=== PATIENT | male | born 1955 | race Caucasian/White ===

== ENCOUNTER → 2024-09-03 07:40 | Outpatient (REF) | payer BC, SELFPAY | LOC: HWRAD 07:40 | PROVIDERS: ATTENDING PHYSICIAN Family Medicine | DX: Z87.891 Personal history of nicotine dependence (principal) | CPT/HCPCS: 71271 ==

== ENCOUNTER → 2024-11-19 08:53 | Outpatient (REF) | payer BC, SELFPAY | LOC: RCS 08:53 | PROVIDERS: ATTENDING PHYSICIAN Family Medicine | DX: I10 Essential (primary) hypertension (principal); R06.02 Shortness of breath | CPT/HCPCS: 93017; 93350; Q9950 ==

== ENCOUNTER 2025-06-22 20:51 | Inpatient (IN) | payer BC, SELFPAY ==
[2025-06-22] VITALS (9 sets, daily range): BP systolic 117–169; BP diastolic 51–95; BMI 24.7; BMI 24.6
[2025-06-22 13:32] LABS: Hematocrit 43.1 % (39.0-52.0); Hemoglobin 15.4 g/dL (13.0-18.0); Mean Corp Hgb Conc. 35.7 g/dL (33.0-37.0); Mean Corpuscular Volume 88.3 fL (80.0-94.0); Nucleated Red Blood Cells % 0 % (-); Platelet Count 144 10^3/uL (130-400); Red Cell Dist. Width 12.5 % (11.5-14.5)
[2025-06-22 13:46] LABS: ALT (SGPT) 19 U/L (0-50); AST (SGOT) 19 U/L (17-59); Albumin 4.5 g/dl (3.5-5.0); Alkaline Phosphatase 79 U/L (38-126); Blood Urea Nitrogen 22 mg/dl (9-20); Calcium 9.4 mg/dl (8.4-10.2); Carbon Dioxide 25 mmol/L (22-30); Chloride 101 mmol/L (98-107); Glucose 186 mg/dl (70-99); Potassium 4.5 mmol/L (3.5-5.1); Sodium 133 mmol/L (135-145); Total Protein 7.6 g/dl (6.3-8.2); eGFR 43.64
[2025-06-22 14:30] LABS: Urine Character Cloudy (Clear)
[2025-06-22 14:36] LABS: Urine White Cell 50-60 /HPF (0-5)
[2025-06-22 14:37] LABS: Urine Red Blood Cell 0-2 /HPF (0-2)
--- NOTE | 2025-06-22 15:51 | ED.GENMED ---
History of Present Illness
General
Chief Complaint: Urinary Symptoms
Time Seen by Provider: 06/22/25 15:09
History of Present Illness
History of Present Illness:
69-year-old male with history of hypertension and prediabetes presenting with known urinary tract infection. Patient reports history of prostate issues and for the past several months has been having urinary frequency. However yesterday, noted
pain with urination. Today was having fever and rigors as well as right sided back pain. He went to his PCP who prescribed him antibiotic. He took the first dose. However upon return home, rigors got worse. Denies history of UTI in the past.
Notes some mild lower abdominal discomfort. Denies chest pain or difficulty breathing. Denies surgical history. Denies additional acute medical complaints
Phy Exam
Physical Exam
Physical Exam:
General: Well-appearing, no clinical signs of dehydration, nontoxic and in no acute distress
HEENT: protecting airway
Neck: appears supple
CV: Normal heart rate, regular rhythm
Resp: No accessory muscle use, no increased work of breathing, lungs clear to auscultation bilaterally
Abd: Mild suprapubic tenderness, no rebound or guarding. No CVA tenderness
Extremities: No deformities, no swelling
Neuro: alert, no focal neurologic deficit
: deferred
Rectal: deferred
Psych: Normal affect
Skin: Intact
Sepsis
Sepsis Screening
Sepsis Assessment: Sepsis
Sepsis Screening: Lactate >2mmol/L
Sepsis Screen
Sepsis Screen: Sepsis
Date: 06/22/25
Time: 19:54
Course
Orders/Labs/Results
Orders:
Orders
06/22/25 13:17
Complete Blood Count/With Diff Urgent
Comprehensive Metabolic Panel Urgent
Lactic Acid Q4H
Comment: ON ICE, CANCEL 2ND ORDER IF FIRST LACTIC ACID LEVEL <2
Blood Culture Q20M
MITZI Source: Blood/Venous
Specimen Description:
Comment: Urgent from separate sites. If patient screens positive for possible sepsis
06/22/25 14:22
Urinalysis Reflex To Culture Urgent
Date Specimen was Collected: 06/22/25
Time Specimen was Collected: 13:10
Urine Microscopic Reflex Cult Urgent
Urine Culture Urgent
MITZI Source: U
Specimen Description:
Date Specimen was Collected: 06/22/25
Time Specimen was Collected: 13:10
06/22/25 15:31
0.9% Sodium Chloride 1000 ml [Nss] 1,000 ml IV BOLUS
Acetaminophen [Tylenol] 1,000 mg PO NOW STA
06/22/25 15:50
CT Abd/pel Without Iv Or Oral Urgent
Comment:
Reason For Exam: UTI, right flank pain, REX
06/22/25 18:18
0.9% Sodium Chloride 1000 ml [Nss] 1,000 ml IV BOLUS
06/22/25 18:36
Lactic Acid Q4H
Comment: ON ICE, CANCEL 2ND ORDER IF FIRST LACTIC ACID LEVEL <2
Blood Culture Q20M
MITZI Source: Blood/Venous
Specimen Description:
Comment: Urgent from separate sites. If patient screens positive for possible sepsis
06/22/25 19:22
Ketorolac [Toradol] 15 mg IV NOW STA
06/22/25 19:48
Cefepime HCl [Maxipime] 2,000 mg IV NOW STA
Abnormal Lab Results
06/22/25 06/22/25
13:17 14:22
MCH 31.6 H pg
(27.0-31.0)
Absolute Neuts (auto) 8.6 H 10^3/uL
(1.4-6.5)
Absolute Lymphs (auto) 0.6 L 10^3/uL
(1.2-3.4)
Neutrophils % 90.0 H %
(42.2-75.2)
Lymphocytes % 6.4 L %
(20.5-51.1)
Sodium 133 L mmol/L
(135-145)
BUN 22 H mg/dl
(9-20)
Creatinine 1.7 H mg/dL
(0.7-1.3)
Glucose 186 H mg/dl
(70-99)
Lactic Acid 3.2 H mmol/L
(0.7-2.0)
Total Bilirubin 2.8 H mg/dl
(0.2-1.3)
Urine Ketones 1+ A
(Negative)
Ur Occult Blood Reflex 4+ A
(Negative)
Urine Nitrite (Reflex) Positive A
(Negative)
Leukocyte Esterase Rfl 3+ A
(Negative)
Urine WBC (Reflex) 50-60 A /HPF
(0-5)
Urine Bacteria (Reflex) Many A
(Negative)
Urine Albumin (Reflex) 3+ A
(Neg - Trace)
06/22/25 13:17
06/22/25 13:17
Vital Signs
Initial and Last Documented VS:
Initial Vital Signs
Temp Pulse Resp BP Pulse Ox
100.1 F 106 18 169/95 98
06/22/25 13:05 06/22/25 13:05 06/22/25 13:05 06/22/25 13:05 06/22/25 13:05
Last Documented Vital Signs
Temp Pulse Resp BP Pulse Ox
100.6 F H 94 31 117/73 96
06/22/25 19:32 06/22/25 19:45 06/22/25 19:45 06/22/25 19:00 06/22/25 19:45
MDM/Problems Addressed
MDM/Problems Addressed:
69-year-old male with history of hypertension and prediabetes presenting for concern of urinary tract infection with fever, rigors, right-sided back pain. Vital signs on arrival significant for fever and tachycardia.
On exam patient is resting comfortably, no acute distress. Patient had laboratory analysis and urinalysis completed prior to my assessment. Patient's workup is significant for urinary tract infection with REX. Patient is meeting SIRS criteria,
and now sepsis with known source of infection. Lactic acid is also elevated at 3.2. Blood pressure remained stable without concern for septic shock or severe sepsis. Started patient on IV fluids and cefepime. Clinically suspect a pyelonephritis
given right sided back pain. Will obtain CT abdomen and pelvis. Patient does have some dry mucous membranes, and in the setting of sepsis, will start patient on IV fluids
18:50 -CT shows a nonobstructing right renal stone and some perinephric stranding, suggesting possible recently passed stone. Clinically suspect pyelonephritis, however infected stone that has since passed is also consideration. Will continue
management with antibiotics, fluids. Fever has appropriately defervesced. Plan for admission for sepsis from urinary source
19:40 -of note, delay in antibiotics due to mistakenly not ordering them. Will administer now
*Pulse Oximetry
SaO2: 98
Oxygen Mode of Delivery: Room air
Patient hypoxic: no
*Critical Care Note
Total Time (30-74mins, 75-104mins- exclusive of procedures): Not Applicable
ED Attending Note
-
Portions of this chart may have been created with voice recognition software.� Occasional wrong word or��sound alike� substitutions may have occurred due to the inherent limitations of voice recognition software.
Discharge Plan
Departure
Patient Disposition: Admit
Date of Disposition: 06/22/25
Time of Disposition: 19:25
Presentation/result/management discussed w/ accepting MD/DO: Hospitalist
Patient with high blood pressure during this ER visit?: No
Condition: Fair
Discharge Problem:
Sepsis, Pyelonephritis, REX (acute kidney injury)
Prescriptions:
No Action
losartan 100 mg Tablet
100 mg PO DAILY
metformin 500 mg Tablet
1,000 mg PO QPM
sulfamethoxazole-trimethoprim [Bactrim DS] 800-160 mg Tablet
1 tab PO BID
Rx Instructions:
for 7 days starting 06/22/25
ibuprofen [Advil] 200 mg Tablet
400 mg PO Q6HPRN PRN (Reason: mild pain)
tadalafil 5 mg Tablet
5 mg PO QPM
cholecalciferol (vitamin D3) [Vitamin D3] 25 mcg (1,000 unit) Tablet
25 mcg PO DAILY
Referrals:
Belkis Logan MD [Family Provider, Family Practice]
Interventions
Interventions:
*Risk Screen - Suicide Last Done: 06/22/25 13:05
*General Assessment Last Done: 06/22/25 13:05
*Neglect/Abuse Screening Last Done: 06/22/25 13:05
*ED- Fall Risk Assessment Last Done: 06/22/25 18:00
*ED COVID-19 Vaccine History Last Done: 06/22/25 19:33
*ED Influenza Vaccine History Last Done: 06/22/25 19:33
ED-Male Genitourinary Assessment Last Done: 06/22/25 19:34
Discharge Date and Time
Print Language: AUSTRALIAN
[2025-06-22] MEDS: TYLENOL 1000 MG PO (15:53)
[2025-06-22] MEDS: NSS 1000 IV ×3 (15:54→20:40)
[2025-06-22] MEDS: TORADOL 15 MG IV (19:27)
[2025-06-22] MEDS: MAXIPIME 2000 MG IV (19:53)
--- NOTE | 2025-06-22 20:23 | HPS.HSE ---
Family Physician
-
Family Physician: Belkis Logan MD
Chief Complaint
-
Fevers / Chills
History of Present Illness
Patient is a 69y M with PMH significant for hypertension, DM-II and BPH who presents to ED complaining of fevers and chills x 2 days. Patient states that he woke feeling fairly well yesterday AM. Around mid-morning he began to feel shaking
chills and general malaise. He went home from work and slept all day. He had diaphoresis during sleep and woke 'drenched' in sweat. Patient noted pain in the L lower abdomen - as well as in the R lower back. Overnight he had increased urinary
frequency and reports multiple episodes of painful, small volume urination. This AM he continued with fevers / chills, abdominal discomfort and urinary symptoms. He was seen by his PCP and UA was abnormal in the office. Patient was prescribed
Bactrim DS - and has taken one dose thus far. At home he has persistent shaking chills / rigors and presented to the ED for further evaluation.
Patient had N/V x 1 episode here in the ED. At the time of my examination patient is ill-appearing with tactile fever and mild diaphoresis.
Medical History
Past Medical History
Past Medical History: Reports Other
Additional Past Medical History:
Hypertension
DM-II
BPH
Past Surgical History: Reports Other
Additional Past Surgical History:
Left TRINH
Social History
Tobacco: Former Smoker (Quit smoking 17y ago.)
Alcohol: Occasional (6 drinks / week - mostly on the weekends.)
Personal:
Living: With Family
Family History
Family History: Not pertinent
Allergies / Home Medications
Allergies reflects when Allergies were last updated in [facility].
Home Medications with original date entered in [facility]
Allergy/Medication List:
Allergies
Allergy/AdvReac Type Severity Reaction Status Date / Time
No Known Allergies Allergy Verified 06/22/25 13:05
Home Medications
cholecalciferol (vitamin D3) 25 mcg (1,000 unit) tablet (Vitamin D3) 25 mcg PO DAILY Supplement 06/22/25
ibuprofen 200 mg tablet (Advil) 400 mg PO Q6HPRN PRN mild pain 06/22/25
losartan 100 mg tablet 100 mg PO DAILY Blood Clot Prevention/Tx 06/22/25
metformin 500 mg tablet 1,000 mg PO QPM Diabetes 06/22/25
sulfamethoxazole 800 mg-trimethoprim 160 mg tablet (Bactrim DS) 1 tab PO BID Infection 06/22/25
tadalafil 5 mg tablet 5 mg PO QPM Urinary Issue 06/22/25
Review of Systems
-
History Source: Patient
A 12 point ROS was completed and negative except as noted: Yes
Constitutional: Reports Fever, Fatigue and Chills
EENT: Denies Sore Throat
Respiratory: Denies Cough or Trouble Breathing
Cardiac: Reports Diaphoresis; Denies Chest Pain or Palpitations
Abdomen/GI: Reports Abdominal Pain, Nausea, Vomiting and Anorexia; Denies Diarrhea, Constipated, Bloody Stools or Black Stools
: Reports Dysuria, Frequency, Flank Pain, Difficulty Voiding and Urgency; Denies Bleeding or Discharge
Musculoskeletal: Denies Joint Pain or Edema
Neurological: Reports Headache; Denies Dizzy
Psych: Denies Depression or Anxiety
Physical Exam
Vital Signs
Vital Signs
Temp Pulse Resp BP Pulse Ox
100.6 F H 94 31 117/73 96
06/22/25 19:32 06/22/25 19:45 06/22/25 19:45 06/22/25 19:00 06/22/25 19:45
Physical Exam
General: Other (Ill-appearing, flushed 69y M.)
HEENT: Other (Dry MM. Neck supple.)
Respiratory: Clear; No Wheezes, Rales or Rhonchi
Cardiac: S1/S2 and Regular Rhythm; No Murmur
GI: Soft, Non Distended, Normal Bowel Sounds and Other (Mild LLQ tenderness. No rebound / guarding.)
Genito-urinary: No costovertebral tender
Musculoskeletal: No Clubbing, No Cyanosis and No Edema
Skin: Other (Tactile fever.)
Neuro: AO x 3
Psych: No Anxious or Depressed
Laboratory Results
-
06/22/25 13:17
06/22/25 13:17
Laboratory Results
Lactic Acid 1.1 mmol/L (0.7-2.0) 06/22/25 18:36
Total Bilirubin 2.8 mg/dl (0.2-1.3) H 06/22/25 13:17
AST 19 U/L (17-59) 06/22/25 13:17
ALT 19 U/L (0-50) 06/22/25 13:17
Alkaline Phosphatase 79 U/L (38-126) 06/22/25 13:17
Impression/Plan
-
A/P: Patient is a 69y M with PMH significant for HTN, DM-II and BPH who presents to ED complaining of fevers / chills since yesterday AM.
UTI / Pyelonephritis +/- Prostatitis
Sepsis secondary to the above
- Admit for further evaluation and treatment.
- Patient presents with urinary symptoms, UA suggestive of infection and evidence of organ dysfunction in the form of REX and hyperbilirubinemia.
- IV levofloxacin for now pending culture data.
- Aggressive IVF resuscitation.
- Supportive care with antipyretics, antiemetics, etc.
- CT scan reviewed. L renal stone but no evidence of ureteral stone, obstruction, etc.
- Perinephric stranding likely result of infection / pyelo.
- Note L pelvic mass / lesion - ? reactive lymph node versus inflamed / infected seminal vesicle.
- Urology evaluation for additional recommendations.
- Will likely repeat imaging after interval to see if there is improvement with treatment of infection.
REX
- SCr = 1.7. No prior values for comparison, but very likely REX secondary to sepsis.
- IVFs resuscitation as noted above.
- Hold losartan acutely.
- Follow for changes in renal function.
Benign Hypertension
- Stable. Holding BP medication as noted above.
DM-II
- Stable. Hold metformin acutely.
- Follow glucose and cover with SSI as needed.
- Update A1C.
BPH
- Tamsulosin daily. Bladder scan protocol and straight cath if needed.
- Check PSA as noted above for evidence of acute elevation / prostatitis.
DVT Prophylaxis: SCDs
Code Status: Full
--- NOTE | 2025-06-22 21:29 | CONS.URO ---
Consultation
-
Date/Time Consultation Performed: 06/22
Performing Provider: Lydia
Reason for Consultation: Prostatitis
Medical History
History of Present Illness
69M hx hypertension, DM-II and BPH
Known to Dr. Vazquez for elevated PSA and BPH management
Increasing PSA recently and has an MRI scheduled for July
Presented to ED complaining of fevers and chills x 2 days.
He began to feel shaking chills and general malaise, went home from work and slept all day.
He had diaphoresis during sleep and woke 'drenched' in sweat. Patient noted pain in the L lower abdomen as well as in the R lower back
Increased urinary frequency and reports multiple episodes of painful, small volume urination.
This AM he continued with fevers / chills, abdominal discomfort and urinary symptoms. He was seen by his PCP and UA was abnormal in the office. Patient was prescribed Bactrim DS - and has taken one dose thus far.
At home he had persistent shaking chills / rigors and presented to the ED for further evaluation
Patient had N/V x 1 episode in the ED
CT showed prostate lesion near L seminal vesicle
Some perinephric stranding without obstruction
Past Medical History
Past Surgical History: Other (Left TRINH)
Family History
Family History: Reviewed & Not Pertinent
Allergies/Home Medications
Allergies
Allergy/AdvReac Type Severity Reaction Status Date / Time
No Known Allergies Allergy Verified 06/22/25 13:05
Home Medications
�Medication �Instructions �Recorded �Confirmed �Type
cholecalciferol (vitamin D3) 25 25 mcg PO DAILY Supplement 06/22/25 06/22/25 History
mcg (1,000 unit) tablet (Vitamin
D3)
ibuprofen 200 mg tablet (Advil) 400 mg PO Q6HPRN PRN mild pain 06/22/25 06/22/25 History
losartan 100 mg tablet 100 mg PO DAILY Blood Clot 06/22/25 06/22/25 History
Prevention/Tx
metformin 500 mg tablet 1,000 mg PO QPM Diabetes 06/22/25 06/22/25 History
sulfamethoxazole 800 1 tab PO BID Infection 06/22/25 06/22/25 History
mg-trimethoprim 160 mg tablet
(Bactrim DS)
tadalafil 5 mg tablet 5 mg PO QPM Urinary Issue 06/22/25 06/22/25 History
Physical Exam
Vital Signs
Vital Signs
Temp Pulse Resp BP Pulse Ox
100.6 F H 95 26 128/58 98
06/22/25 19:32 06/22/25 21:15 06/22/25 21:15 06/22/25 21:00 06/22/25 20:00
Lab / Testing Results
Laboratory Results
06/22/25 13:17
06/22/25 13:17
Physical Exam
General: Well Developed, Well Nourished and No Apparent Distress
Respiratory: Clear and Non Labored Respirations
GI: Soft and Non Tender
Genito-urinary: No Costovertebral Tend
Neuro: AO x 3
Psych: Calm and Intact Judgement
Assessment / Plan
-
69M with sepsis from acute prostatitis and possible ascending UTI/pyelonephritis
- IV abx pending culture
- Jenkins catheter given voiding difficulty
- Tamsulosin
- Trial of void prior to discharge
- Soft tissue mass at L seminal vesicle on CT may be inflammatory/infectious vs less likely malignant. Does not appear to be a drainable collection/abscess
- An MRI of the prostate was already pending in mid July for elevated PSA and this may be a reasonable interval for follow up imaging of this area, unless persistent infection warrants repeat eval for abscess
- Recommend against checking PSA in setting of acute prostatitis
[2025-06-22] MEDS: TYLENOL 650 MG PO (21:51)
[2025-06-22] MEDS: FLUSH (NSS) 1 FLUSH IV (21:52)
--- NOTE | 2025-06-22 22:30 | PTCARENOTE ---
Pt arrived to unit cooperative, ambulated from stretcher to bed, steady gait, with pham catheter, otf urine. Pt was AAOx3, oriented to unit, call winter in reach, bed locked, bed in lowest position.
[2025-06-22] MEDS: LR 1000 IV (23:16)
[2025-06-22] MEDS: LEVAQUIN 100 IV (23:16)
[2025-06-22 23:34] LABS: Glucose - Point of Care 149 mg/dl (70-99)
[2025-06-23] VITALS (7 sets, daily range): BP systolic 99–149; BP diastolic 58–78
[2025-06-23] MEDS: COMPAZINE 5 MG IV ×2 (03:27→19:47)
[2025-06-23] MEDS: TYLENOL 650 MG PO ×3 (04:08→13:53)
--- NOTE | 2025-06-23 07:58 | W.PN.HOSP.TC ---
Today's Communication/Plan
-
Continue antibiotics
Follow cultures
Assessment / Plan
Assessment / Plan
Physical Exam
General: Other (Ill-appearing, flushed 69y M.)
HEENT: Other (Dry MM. Neck supple.)
Respiratory: Clear; No Wheezes, Rales or Rhonchi
Cardiac: S1/S2 and Regular Rhythm; No Murmur
GI: Soft, Non Distended, Normal Bowel Sounds
Genito-urinary: No costovertebral tender
Musculoskeletal: No Cyanosis and No Edema
Skin: Warm. Dry.
Neuro: AO x 3
Psych: Calm
Assessment/Plan
69y M with PMH significant for hypertension, DM-II and BPH who presents to ED complaining of fevers and chills x 2 days. Patient states that he woke feeling fairly well yesterday AM. Around mid-morning he began to feel shaking chills and
general malaise. He went home from work and slept all day. He had diaphoresis during sleep and woke 'drenched' in sweat. Patient noted pain in the L lower abdomen - as well as in the R lower back. Overnight he had increased urinary frequency and
reports multiple episodes of painful, small volume urination. This AM he continued with fevers / chills, abdominal discomfort and urinary symptoms. He was seen by his PCP and UA was abnormal in the office. Patient was prescribed Bactrim DS - and
has taken one dose thus far. At home he has persistent shaking chills / rigors and presented to the ED for further evaluation.
Patient had N/V x 1 episode in the ED.
UTI / Pyelonephritis +/- Prostatitis
Sepsis secondary to the above associated with lactic acidosis and acute kidney injury
Gram Negative Bacteremia
Lactic Acidosis - RESOLVED
- Patient presents with urinary symptoms, UA suggestive of infection and evidence of organ dysfunction in the form of REX and hyperbilirubinemia.
- Cefepime, Levofloxacin given initially.
- Now on Cefepime only.
- IVF resuscitation.
- Supportive care with antipyretics, antiemetics, etc.
- CT scan reviewed. L renal stone but no evidence of ureteral stone, obstruction, etc.
- Perinephric stranding likely result of infection / pyelo.
- Note L pelvic mass / lesion - ? reactive lymph node versus inflamed / infected seminal vesicle.
- Urology evaluation for additional recommendations.
REX
- SCr = 1.7. No prior values for comparison, but very likely REX secondary to sepsis.
- IVFs resuscitation as noted above.
- Hold losartan acutely.
- Follow for changes in renal function.
Thrombocytopenia
- Suspected from antibiotics and infection
- Continue to monitor CBC
Benign Hypertension
- Stable. Holding BP medication as noted above.
DM-II
- Stable. Hold metformin acutely.
- Follow glucose and cover with SSI as needed.
- Update A1C 6.1%
BPH
- Tamsulosin daily. Bladder scan protocol and straight cath if needed.
- Check PSA as noted above for evidence of acute elevation / prostatitis.
DVT Prophylaxis: SCDs. heparin Subq
Code Status: Full Code
Anticipated Discharge: > 48 hours
Subjective/Interval History
-
Date of Service: June 23, 2025
Patient was seen and examined. He reported significant chills.
Objective Data
-
Labs:
Laboratory Results
06/23/25
07:10
WBC Pending
Hgb Pending
Hct Pending
Plt Count Pending
Sodium Pending
Potassium Pending
Chloride Pending
Carbon Dioxide Pending
BUN Pending
Creatinine Pending
Glucose Pending
Calcium Pending
Vital Signs:
Vital Signs
Temp Pulse Resp BP Pulse Ox
98.7 F 87 18 99/59 95
06/23/25 07:30 06/23/25 07:30 06/23/25 07:30 06/23/25 07:30 06/23/25 07:30
[2025-06-23 08:11] LABS: Blood Urea Nitrogen 20 mg/dl (9-20); Calcium 7.6 mg/dl (8.4-10.2); Carbon Dioxide 24 mmol/L (22-30); Chloride 104 mmol/L (98-107); Estimated Creatinine Clearance 49 ml/min; Glucose 152 mg/dl (70-99); Potassium 4.1 mmol/L (3.5-5.1); Sodium 131 mmol/L (135-145); eGFR 43.64
[2025-06-23] MEDS: LR 1000 IV ×3 (08:16→23:24)
[2025-06-23] MEDS: FLOMAX 0.4 MG PO (08:16)
[2025-06-23 08:21] LABS: Glucose - Point of Care 148 mg/dl (70-99)
[2025-06-23 08:34] LABS: Hematocrit 31.4 % (39.0-52.0); Hemoglobin 11.3 g/dL (13.0-18.0); Mean Corp Hgb Conc. 36.0 g/dL (33.0-37.0); Mean Corpuscular Volume 89.5 fL (80.0-94.0); Platelet Count 66 10^3/uL (130-400); Red Cell Dist. Width 12.3 % (11.5-14.5)
[2025-06-23] MEDS: NOVOLOG FLEXPEN-LOW RESISTANCE SC ×3 (08:51→17:30)
[2025-06-23] MEDS: MAXIPIME 1000 MG IV ×2 (08:54→17:32)
[2025-06-23] MEDS: STERILE WATER FOR INJECTION 10 ML IV ×2 (08:54→17:31)
[2025-06-23 09:35] LABS: Glycohemoglobin (HgbA1c) 6.1 % (4.0-5.9)
[2025-06-23] MEDS: LR 500 IV (10:17)
--- NOTE | 2025-06-23 11:58 | CM ---
Patient seen bedside w/ spouse, initial assessment completed. Patient is a 69y M with PMH significant for hypertension, DM-II and BPH who presents to ED complaining of fevers and chills.
Patient resides w/ spouse in a 2ST[facility], 13 steps to enter. Patient is independent w/ ambulation, no device required. Independent w/ ADLs and personal care. Currently employed. Denies SNF/HC hx.
Address, point of contact and insurance verified
PCP: Belkis Logan
Pharmacy: [facility] [place]
Plan: Home, no needs
[2025-06-23] MEDS: LR IV (12:28)
[2025-06-23 12:31] LABS: Glucose - Point of Care 134 mg/dl (70-99)
--- NOTE | 2025-06-23 13:58 | CON.ID ---
Consultation
-
Date/Time Consultation Requested: 06/23/2024 0810
Date/Time Consultation Performed: 06/23/2025 1254
Requesting Provider: Dr. Sanders
Performing Provider: Dr. Paz
Reason for Consultation: Complicated urinary tract infection; bacteremia
Chief Complaint / Past History
History of Present Illness
Octaviano Gil is a 69-year-old man being evaluated at the request of Dr. Sanders in regards to a complicated urinary tract infection and bacteremia. History is obtained from chart review, along with patient interview. Additional history was
obtained from the patient's who is at the bedside.
The patient reports that he was in his usual state of health until approximately 2 days ago. He remembers waking up and going to the gym and then he went to [facility] for blood work. Thereafter, he went to work but felt 'punky' and developed fevers
and shakes. He went home and got into bed around 2 PM and slept until approximately 8 PM. At that point he felt somewhat better and ate something, but then went back to sleep and notes that he overnight he felt listless and had ongoing fevers.
Next day (yesterday) he reports he felt worse and went to his PCP. There, he states that his urinalysis was found to be abnormal and he was prescribed an antibiotic. He took the prescription and was able to get 1 pill in, but then felt quite
unwell and came to the hospital for further evaluation. Here, he was found to have fever to 102 degrees. Blood cultures obtained at the time of admission are now positive, as is his urine culture.
The patient notes that he had ongoing fevers. He also admits to dysuria and hematuria prior to admission. He notes decreased appetite, and prior right CVA discomfort.
Past History
Additional Past Medical History:
HTN
DM
BPH
Additional Past Surgical History:
Left total hip arthroplasty
Allergy History:
No Known Allergies Allergy (Verified 06/22/25 13:05)
Medications Reviewed: Yes
Current Antibiotics:
Cefepime 1 gm IV q.8 hours
Social History
Tobacco: Non-Smoker
Alcohol: None
Drug: None
Personal:
Living: With Family
Employment: Employed
Family History
Family History: Not Pertinent
Review of Systems
Vital Signs
Temp Pulse Resp BP Pulse Ox
99.1 F 93 18 119/59 91
06/23/25 11:15 06/23/25 11:15 06/23/25 11:15 06/23/25 11:15 06/23/25 11:15
Physical Exam
Physical Exam
Constitutional: No Acute Distress, Comfortable, Acutely Ill and Non-toxic
Eyes: Pupils Equal, Pupils Round and No Conjunctival Hemorrhage
Oral: No Thrush and No Ulcers
Cardiovascular: Regular Rate and S1/S2; Negative S3/S4
Pulmonary: Clear; Negative Wheezes, Rales or Rhonchi
Gastrointestinal: Soft, Non Tender, Non Distended and Normal Bowel Sounds
Genito-Urinary: Jenkins and Hematuria; Negative CVA Tenderness
Extremities: Negative Edema, Cyanosis or Erythema
Neurological: Awake and Alert
Psychological: Calm
.
Lab / Diagnostic Study Results
06/23/25 07:10
06/23/25 07:10
Abs Immat Gran (auto) 0.0 10^3/uL (0-0.05) 06/22/25 13:17
Absolute Neuts (auto) 8.6 10^3/uL (1.4-6.5) H 06/22/25 13:17
Absolute Lymphs (auto) 0.6 10^3/uL (1.2-3.4) L 06/22/25 13:17
Absolute Monos (auto) 0.3 10^3/uL (0.1-0.6) 06/22/25 13:17
Absolute Basos (auto) 0.0 10^3/uL (0-0.2) 06/22/25 13:17
Immature Gran % 0.2 % (0-0.5) 06/22/25 13:17
Neutrophils % 90.0 % (42.2-75.2) H 06/22/25 13:17
Lymphocytes % 6.4 % (20.5-51.1) L 06/22/25 13:17
Monocytes % 3.2 % (1.7-9.3) 06/22/25 13:17
Eosinophils % 0.0 % (0-6) 06/22/25 13:17
Basophils % 0.2 % (0-2) 06/22/25 13:17
Lactic Acid 1.1 mmol/L (0.7-2.0) 06/22/25 18:36
Ur Squamous Epith Cells 3-5 /LPF (Few) 06/22/25 14:22
Microbiology Results
Micro:
06/22/25 14:22 Urine Culture - Preliminary
Urine Escherichia coli
06/22/25 13:17 Blood Culture - Preliminary
Blood/Venous Escherichia coli
Gram Stain - Preliminary
06/23/25 08:54 Blood Culture - Pending
Blood/Venous
06/23/25 08:24 Blood Culture - Pending
Blood/Venous
06/22/25 18:36 Blood Culture - Preliminary
Blood/Venous Positive culture in progress
Gram Stain - Preliminary
Imaging:
06/22/2025 CT abdomen/pelvis without contrast: mild left perinephric stranding and periureteral stranding possibly due to recently passed stone. Mild diverticulosis. Mild bladder wall thickening. Moderate prostate hypertrophy. No radiopaque
urinary stone is identified. A 1 mm nonobstructing left renal stone is noted, along with mild left perinephric and periureteral stranding. Please see full dictation for additional detail.
Assessment / Plan
Complicated urinary tract infection
Suspected pyelonephritis
Fever
E. coli bacteremia
Renal insufficiency
HTN
DM
BPH
Recommendations:
Continue with cefepime as no resistance genes noted by PCR methodology on [employer].
Follow white count and temperature curve.
Await final culture data to guide further antimicrobial selection and potential de-escalation.
--- NOTE | 2025-06-23 14:48 | W.PN.URO.CBU ---
Today's Communication / Plan
-
Continue IV antibiotics
Keep Jenkins
Await sensitiivites
Assessment / Plan
-
E. coli bacteremia/urosepsis
Longstanding elevated PSA
Possible left pelvic mass
Diagnosis
-
Date of Service: June 23, 2025
-
Patient Diagnosis:
E. coli bacteremia/urosepsis
Longstanding PSA elevation
Left pelvic lymph node v. mass on CT scan 06/22/25
Subjective
-
Feels poorly
Fatigued
Brain fog
Objective
-
Vital Signs
Temp Pulse Resp BP Pulse Ox
99.1 F 93 18 119/59 91
06/23/25 11:15 06/23/25 11:15 06/23/25 11:15 06/23/25 11:15 06/23/25 11:15
Intake and Output
06/22/25 06/23/25 06/24/25
06:59 06:59 06:59
Output Total 300 / 300
Balance -300 / -300
Output:
Urine, Jenkins 300 / 300
Laboratory Results
06/23/25 07:10
06/23/25 07:10
Review of Systems
-
Constitutional: Fever and Fatigue
Respiratory: No Symptoms
Cardiac: No Symptoms
Abdomen/GI: No Symptoms
Musculoskeletal: Joint Pain
Physical Exam
-
General - ill-appearing, no acute distress
Abdomen - soft, no CVAT, no distention
Genitalia - normal with Jenkins draining deep otf uinre
Neuro - alert and oriented
Counseling
-
Will need 2-3 weeks of po antibiotics at time of discharge
Voiding trial before discharge
MRI pelvic schedule for July 2026
[2025-06-23 16:51] LABS: Glucose - Point of Care 147 mg/dl (70-99)
[2025-06-23] MEDS: HEPARIN 5000 UNITS SC (19:42)
[2025-06-23 21:17] LABS: Glucose - Point of Care 155 mg/dl (70-99)
[2025-06-24] VITALS (7 sets, daily range): BP systolic 109–140; BP diastolic 66–87
[2025-06-24] MEDS: STERILE WATER FOR INJECTION 10 ML IV ×4 (01:42→23:03)
[2025-06-24] MEDS: MAXIPIME 1000 MG IV ×4 (01:42→23:03)
[2025-06-24] MEDS: LR 1000 IV (06:04)
--- NOTE | 2025-06-24 07:21 | PTCARENOTE ---
T @ 0400hrs was 100.0. @ 0630hrs pt stated my fever must have broke. T was 98.5. Discussed exp wheeze with MERCHANDISE PLANNER. No new orders placed. No s/s of distress assessed.
[2025-06-24 08:04] LABS: Blood Urea Nitrogen 20 mg/dl (9-20); Calcium 7.7 mg/dl (8.4-10.2); Carbon Dioxide 21 mmol/L (22-30); Chloride 106 mmol/L (98-107); Estimated Creatinine Clearance 52 ml/min; Glucose 143 mg/dl (70-99); Potassium 4.0 mmol/L (3.5-5.1); Sodium 131 mmol/L (135-145); eGFR 46.93
[2025-06-24 08:14] LABS: Glucose - Point of Care 153 mg/dl (70-99)
[2025-06-24 08:17] LABS: Hematocrit 31.3 % (39.0-52.0); Hemoglobin 11.3 g/dL (13.0-18.0); Mean Corp Hgb Conc. 36.1 g/dL (33.0-37.0); Mean Corpuscular Volume 86.9 fL (80.0-94.0); Nucleated Red Blood Cells % 0 % (-); Platelet Count 78 10^3/uL (130-400); Red Cell Dist. Width 12.0 % (11.5-14.5)
--- NOTE | 2025-06-24 08:17 | STATUS ---
SITUATION:
Patient with hypoxia, tachynpnea and tea colored urine in Jenkins on assessment this am. POX 87% on room air with 28 resp/min, increased to 94% on 5L with patient sitting upright in bed and coached through breathing. Lung sounds decreased throughout
with faint crackles to right base, anterior wheeze b/l. Nightshift RN reported patient with c/o wheezing last night, patient maintained on room air; nighttime provider aware-no treatments ordered at that time. Patient and also feel like patient
has some generalized edema-possibly trace non-pitting noted on assessment. Dr. Nails aware and communicated to nursing to expect him bedside soon.
BACKGROUND:
ASSESSMENT:
RECOMMENDATION:
[2025-06-24] MEDS: NOVOLOG FLEXPEN-LOW RESISTANCE 1 UNITS SC (08:19)
[2025-06-24] MEDS: HEPARIN 5000 UNITS SC ×2 (08:22→22:05)
[2025-06-24] MEDS: FLOMAX 0.4 MG PO (08:24)
[2025-06-24] MEDS: FLUSH (NSS) 1 FLUSH IV ×3 (08:27→17:56)
--- NOTE | 2025-06-24 08:40 | W.PN.HOSP.TC ---
Today's Communication/Plan
-
See plan
Assessment / Plan
Assessment / Plan
Physical Exam
General: Other (Ill-appearing, flushed 69y M.)
HEENT: Other (Dry MM. Neck supple.)
Respiratory: Crackles/decreased breath sounds. On 5 L NC oxygen.
Cardiac: S1/S2 and Regular Rhythm; No Murmur
GI: Soft, Non Distended, Normal Bowel Sounds
Musculoskeletal: No Cyanosis and No Edema
Skin: Warm. Dry.
Neuro: AO x 3
Psych: Calm
Assessment/Plan
69y M with PMH significant for hypertension, DM-II and BPH who presents to ED complaining of fevers and chills x 2 days. Patient states that he woke feeling fairly well yesterday AM. Around mid-morning he began to feel shaking chills and
general malaise. He went home from work and slept all day. He had diaphoresis during sleep and woke 'drenched' in sweat. Patient noted pain in the L lower abdomen - as well as in the R lower back. Overnight he had increased urinary frequency and
reports multiple episodes of painful, small volume urination. This AM he continued with fevers / chills, abdominal discomfort and urinary symptoms. He was seen by his PCP and UA was abnormal in the office. Patient was prescribed Bactrim DS - and
has taken one dose thus far. At home he has persistent shaking chills / rigors and presented to the ED for further evaluation.
Patient had N/V x 1 episode in the ED.
UTI / Pyelonephritis +/- Prostatitis
Sepsis secondary to the above associated with lactic acidosis and acute kidney injury
Gram Negative Bacteremia
Lactic Acidosis - RESOLVED
- Patient presents with urinary symptoms, UA suggestive of infection and evidence of organ dysfunction in the form of REX and hyperbilirubinemia.
- Cefepime, Levofloxacin given initially.
- Now on Cefepime only.
- IV fluids stopped given hypoxia and fluid overload
- Supportive care with antipyretics, antiemetics, etc.
- CT scan reviewed. L renal stone but no evidence of ureteral stone, obstruction, etc.
- Perinephric stranding likely result of infection/pyelonephritis
- Note L pelvic mass / lesion - ? reactive lymph node versus inflamed / infected seminal vesicle.
- Urology evaluation for additional recommendations.
Acute Hypoxic Respiratory Failure
Acute heart failure with preserved EF
- Overnight 06/23/25 to 06/24/25
- Echo unremarkable
- proBNP quite high -- suspected iatrogenic fluid overload
- IV Lasix 40 mg today
- Stopped IV fluids
- Trend troponin
- Recheck CXR in the morning
- Appreciate Cardiology for this and very frequent new PVCs
Asymptomatic PVCs
- Continue to monitor on telemetry
Elevated Troponin -- Suspected nonischemic myocardial injury in the setting of urosepsis and acute heart failure.
REX
- SCr = 1.7. No prior values for comparison, but very likely REX secondary to sepsis.
- IVFs resuscitation as noted above.
- Hold losartan acutely.
- Follow for changes in renal function.
Thrombocytopenia
- Suspected from antibiotics and infection, and IV fluids
- Continue to monitor CBC
- Retic count, LDH and bilirubin are normal
Normocytic Anemia
- Suspected from hemodilution
Benign Hypertension
- Stable. Holding BP medication as noted above.
DM-II
- Stable. Hold metformin acutely.
- Follow glucose and cover with SSI as needed.
- Update A1C 6.1%
BPH
- Tamsulosin daily. Bladder scan protocol and straight cath if needed.
DVT Prophylaxis: SCDs. heparin Subq
Code Status: Full Code
On 06/23/25 and 06/24/25, I spoke with and updated patient's , and I answered all of her questions and concerns to satisfaction.
Acute Hypoxia and Prostatitis is a high risk encounter.
Anticipated Discharge: > 48 hours
Subjective/Interval History
-
Date of Service: June 24, 2025
Patient was seen and examined. Last night he had some wheezing, but overnight he became more short of breath, hypoxic and wheezing.
Objective Data
-
Labs:
Laboratory Results
06/24/25 06/24/25
07:21 07:54
WBC 4.0 L
Hgb 11.3 L
Hct 31.3 L
Plt Count 78 L
Sodium 131 L
Potassium 4.0
Chloride 106
Carbon Dioxide 21 L
BUN 20
Creatinine 1.6 H
Glucose 143 H
Calcium 7.7 L
Vital Signs:
Vital Signs
Temp Pulse Resp BP Pulse Ox
97.9 F 83 20 109/87 87
06/24/25 07:47 06/24/25 07:47 06/24/25 07:47 06/24/25 07:47 06/24/25 07:47
I&O
06/23/25 06/24/25 06/25/25
06:59 06:59 06:59
Intake Total 480 / 480
Output Total 1450 / 1450
Balance -970 / -970
[2025-06-24] MEDS: LASIX 40 MG IV (09:11)
[2025-06-24] MEDS: BENADRYL 25 MG IV (09:12)
[2025-06-24] MEDS: DELTASONE 40 MG PO (09:13)
[2025-06-24 09:15] LABS: Albumin 2.6 g/dl (3.5-5.0)
[2025-06-24 10:41] LABS: Reticulocyte Count 0.9 % (0.4-2.8)
[2025-06-24 10:51] LABS: INR 1.12; PT 14.7 Sec (11.4-14.6)
--- NOTE | 2025-06-24 10:52 | CON.CAR ---
Addendum entered and electronically signed by Allan Britt MD 06/24/25 14:10:
I saw and evaluated the patient, and I provided the substantive portion of the medical decision making.
I reviewed and agree with the note by Gisselle WREN and it accurately reflects our care.
I personally performed the medical decision making of the this encounter and my assessment and plan is below:
69 yo male with HTN, NIDDM, BPH, who is admitted with UROSEPSIS. Last night he developed shortness of breath and wheezing. He felt better with oxygen and sitting up. He had no cp or sob.
He is lying on his side in no distress, lung cta posteriorly faint wheeze anteriorly, rrr no m/r/g. No le edema.
cxr: bl interstitial marking
Echocardiogram normal
Labs pertinent for REX BUN 21 creatinine 1.6 proBNP 8510 troponin 0.246
EKG normal sinus rhythm with PVCs in the pattern of trigeminy
stress echo 11/19/24: EF 55-60%, normal study, negative for ischemia, hypertensive at peak 228/92, 5 beats SVT in recovery.
Assessment:
Urosepsis
Acute heart failure with preserved EF
Nonischemic myocardial injury in the setting of urosepsis and acute heart failure.
REX
Diabetes
Asymptomatic PVCs
Plan
Stop IV fluids, received a dose of IV Lasix. Will assess for repeat diuretic dosing tomorrow.
Eventual GDMT but would not start SGLT2 inhibitor in the setting of urosepsis. Holding ZAY inhibitor/ARB/ARNI/MRA in the setting of REX. Eventually can start.
Monitor telemetry for asymptomatic PVCs.
Trend troponin
Will follow
Original Note:
Consultation
Consultation Request
Date/Time Consultation Requested: 06/24/25 9:30a
Date/Time Consultation Performed: 06/24/25 10:45a
Requesting Provider: Dr. Nails
Performing Provider: SIENA Owen for Dr. Britt
Reason for Consultation: PVCs, SOB
Medical History
-
Chief Complaint: UTI
History of Present Illness:
Mr. Gil is a 69 yo male with HTN, NIDDM, BPH, who presents to the ER with c/o fever/UTI. He is admitted to hospitalist service for UTI E.coli bacteremia/sepsis with Urology following. He developed acute SOB with wheezing that improved with
oxygen, IV Lasix and prednisone. He was also noted to have PVCs on telemetry and EKG. We are consulted for PVCs and SOB. CXR today with increased interstitial markings centrally suggests an asthmatic type process, viral type pneumonia or
bronchitis. ProBNP 8510 and troponin 0.246. He denies any chest pain or SOB currently.
Past Medical History
Past Medical History: Other (as above)
Past Surgical History: Orthopedic (left knee surgery, left TRINH)
Social History
Tobacco: Former Smoker
Alcohol: Other (6 drinks a week)
Personal:
Living: With Family
Employment: Employed
Family History
Family History: Cancer (dad and sister from lung cancer. ) and Other (mother from pulmonary fibrosis)
Allergies / Home Medications
Allergy/AdvReac Type Severity Reaction Status Date / Time
No Known Allergies Allergy Verified 06/22/25 13:05
�Medication �Instructions �Recorded �Confirmed �Type
cholecalciferol (vitamin D3) 25 25 mcg PO DAILY Supplement 06/22/25 06/22/25 History
mcg (1,000 unit) tablet (Vitamin
D3)
ibuprofen 200 mg tablet (Advil) 400 mg PO Q6HPRN PRN mild pain 06/22/25 06/22/25 History
losartan 100 mg tablet 100 mg PO DAILY Blood Clot 06/22/25 06/22/25 History
Prevention/Tx
metformin 500 mg tablet 1,000 mg PO QPM Diabetes 06/22/25 06/22/25 History
sulfamethoxazole 800 1 tab PO BID Infection 06/22/25 06/22/25 History
mg-trimethoprim 160 mg tablet
(Bactrim DS)
tadalafil 5 mg tablet 5 mg PO QPM Urinary Issue 06/22/25 06/22/25 History
Review of Systems
-
History Source: Patient
All other systems: Negative unless noted
Physical Exam
Vital Signs
Temp Pulse Resp BP Pulse Ox
97.9 F 83 20 109/87 87
06/24/25 07:47 06/24/25 07:47 06/24/25 07:47 06/24/25 07:47 06/24/25 07:47
Lab Results
06/24/25 07:54
Physical Exam
General: Well Developed and Well Nourished
HEENT: Normocephalic and Anicteric
Respiratory: Wheezes (expiratory diffuse)
Cardiac: S1/S2 and Regular Rhythm
Breast: Deferred by me
GI: Soft and Non Tender
Rectal: Deferred by Provider
Genito-urinary: Clear Urine
Musculoskeletal: No Clubbing, No Cyanosis and No Edema
Skin: Warm and Dry
Neuro: AO x 3
Hematologic/Lymphatic: No Lymphadenopathy
Psych: Calm
Impression / Plan
-
HFpEF - acute.
- elevated proBNP and SOB improved with IV Lasix once this am.
- feeling much improved.
- echo today was normal, EF 58%, no RWMA.
- Losartan on hold for REX, no SGLT2i due to UTI bacteremia now, will reassess as an outpatient.
- monitor volume status, no further Lasix at this time.
Non-ischemic myocardial injury - acute, secondary to acute UTI E.coli bacteremia/sepsis and acute HFpEF.
- had acute SOB that improved with IV Lasix.
- denies chest pain or SOB now.
- echo is normal.
- will need outpatient stress test when recovers from this acute illness.
UTI - acute E.coli bacteremia/sepsis.
- per urology.
- Jenkins catheter in place.
BPH - per urology.
Data Reviewed
-
EKG: Tracing Personally Visualized and interpreted (SR with frequent PVCs 98 bpm)
Radiology: Report Reviewed by me (CXR: Increased interstitial markings centrally suggests an asthmatic type process, viral type pneumonia or bronchitis)
Medical Tests (Nuc Med, Echo etc): Report Reviewed by me (stress echo 11/19/24: EF 55-60%, normal study, negative for ischemia, hypertensive at peak 228/92, 5 beats SVT in recovery.)
Labs: Labs Reviewed by me
Old Records: Reviewed
[2025-06-24 10:53] LABS: APTT 39.6 Sec (23.4-35.0)
[2025-06-24 11:08] LABS: Troponin I 0.246 ng/ml
[2025-06-24 11:09] LABS: ALT (SGPT) 18 U/L (0-50); AST (SGOT) 22 U/L (17-59); Albumin 3.0 g/dl (3.5-5.0); Alkaline Phosphatase 56 U/L (38-126); Blood Urea Nitrogen 21 mg/dl (9-20); Calcium 8.1 mg/dl (8.4-10.2); Carbon Dioxide 25 mmol/L (22-30); Chloride 103 mmol/L (98-107); Estimated Creatinine Clearance 52 ml/min; Glucose 183 mg/dl (70-99); LDH 155 U/L (120-246); Magnesium 1.9 mg/dl (1.6-2.3); Potassium 4.0 mmol/L (3.5-5.1); Sodium 132 mmol/L (135-145); Total Protein 5.6 g/dl (6.3-8.2); eGFR 46.93
[2025-06-24 12:56] LABS: Glucose - Point of Care 211 mg/dl (70-99)
[2025-06-24] MEDS: NOVOLOG FLEXPEN-LOW RESISTANCE 2 UNITS SC (13:15)
--- NOTE | 2025-06-24 14:49 | W.PN.ID1 ---
Date of Service
Date of Service: June 24, 2025
Today's Communication
Continue cefepime pending final cx data.
Assessment / Plan
Complicated urinary tract infection
Suspected pyelonephritis
Fever - trending down
E. coli bacteremia
Renal insufficiency
HTN
DM
BPH
Recommendations:
Repeat bcx's neg to date.
Continue with cefepime as no resistance genes noted by PCR methodology on [employer].
Follow white count and temperature curve.
Await final culture data to guide further antimicrobial selection and potential de-escalation.
Chief Complaint
-: UTI and Bacteremia
Subjective / Review of Systems
at bedside.
SOB/wheezing better with after lasix and prednisone dose.
Vital Signs / Physical Exam
Vital Signs
Vital Signs
Temp Pulse Resp BP Pulse Ox
100.4 F H 87 18 127/72 96
06/24/25 11:10 06/24/25 11:10 06/24/25 11:10 06/24/25 11:10 06/24/25 11:10
Physical Exam
Constitutional: Comfortable
Cardiovascular: Regular Rate and S1/S2
Pulmonary: Clear
Gastrointestinal: Soft and Non Tender
Genito-Urinary: Jenkins and Clear Urine; Negative CVA Tenderness
Objective Data
Lab Data
Lab Results
06/24/25 07:54
06/24/25 10:26
PT 14.7 Sec (11.4-14.6) H 06/24/25 10:26
INR 1.12 06/24/25 10:26
APTT 39.6 Sec (23.4-35.0) H 06/24/25 10:26
Estimated Creat Clear 52 ml/min 06/24/25 10:26
Lactic Acid 1.1 mmol/L (0.7-2.0) 06/22/25 18:36
Total Bilirubin 1.1 mg/dl (0.2-1.3) D 06/24/25 10:26
AST 22 U/L (17-59) 06/24/25 10:26
ALT 18 U/L (0-50) 06/24/25 10:26
Alkaline Phosphatase 56 U/L (38-126) 06/24/25 10:26
Most recent labs reviewed.
Micro Results:
06/22/25 18:36 Blood Culture - Preliminary
Blood/Venous Positive culture in progress
Gram Stain - Final
06/22/25 13:17 Blood Culture - Preliminary
Blood/Venous Escherichia coli
Gram Stain - Preliminary
06/22/25 14:22 Urine Culture - Preliminary
Urine Escherichia coli
06/23/25 08:54 Blood Culture - Preliminary
Blood/Venous No Growth in 24 hours- Final report to follow
06/23/25 08:24 Blood Culture - Preliminary
Blood/Venous No Growth in 24 hours- Final report to follow
Imaging:
06/22/2025 CT abdomen/pelvis without contrast: mild left perinephric stranding and periureteral stranding possibly due to recently passed stone. Mild diverticulosis. Mild bladder wall thickening. Moderate prostate hypertrophy. No radiopaque
urinary stone is identified. A 1 mm nonobstructing left renal stone is noted, along with mild left perinephric and periureteral stranding. Please see full dictation for additional detail.
[2025-06-24 15:20] LABS: Troponin I 0.152 ng/ml
[2025-06-24 17:57] LABS: Glucose - Point of Care 271 mg/dl (70-99)
[2025-06-24] MEDS: NOVOLOG FLEXPEN-LOW RESISTANCE 3 UNITS SC (18:09)
[2025-06-24 21:40] LABS: Troponin I 0.061 ng/ml
[2025-06-24 21:43] LABS: Glucose - Point of Care 235 mg/dl (70-99)
[2025-06-24] MEDS: MELATONIN 3 MG PO (22:12)
[2025-06-25 03:19] VITALS: BP 120/60
[2025-06-25 04:27] LABS: Troponin I 0.039 ng/ml
[2025-06-25 05:57] VITALS: BMI 24.8
[2025-06-25 07:25] VITALS: BP 138/80
[2025-06-25 07:26] LABS: Hematocrit 31.9 % (39.0-52.0); Hemoglobin 11.7 g/dL (13.0-18.0); Mean Corp Hgb Conc. 36.7 g/dL (33.0-37.0); Mean Corpuscular Volume 87.2 fL (80.0-94.0); Nucleated Red Blood Cells % 0 % (-); Platelet Count 86 10^3/uL (130-400); Red Cell Dist. Width 12.0 % (11.5-14.5)
[2025-06-25 07:32] LABS: Glucose - Point of Care 180 mg/dl (70-99)
[2025-06-25] MEDS: FLOMAX 0.4 MG PO (07:48)
[2025-06-25] MEDS: NOVOLOG FLEXPEN-LOW RESISTANCE 1 UNITS SC ×2 (07:48→12:16)
[2025-06-25] MEDS: HEPARIN 5000 UNITS SC ×2 (07:49→21:56)
[2025-06-25] MEDS: STERILE WATER FOR INJECTION 10 ML IV ×4 (07:53→21:55)
[2025-06-25] MEDS: MAXIPIME 1000 MG IV (07:53)
[2025-06-25 07:55] LABS: Blood Urea Nitrogen 27 mg/dl (9-20); Calcium 7.9 mg/dl (8.4-10.2); Carbon Dioxide 25 mmol/L (22-30); Chloride 107 mmol/L (98-107); Estimated Creatinine Clearance 60 ml/min; Glucose 166 mg/dl (70-99); Potassium 3.9 mmol/L (3.5-5.1); Sodium 136 mmol/L (135-145); eGFR 55.09
--- NOTE | 2025-06-25 07:59 | W.PN.HOSP.TC ---
Today's Communication/Plan
-
See plan
Assessment / Plan
Assessment / Plan
Physical Exam
General: Other (Ill-appearing, flushed 69y M.)
HEENT: Other (Dry MM. Neck supple.)
Respiratory: Crackles/decreased breath sounds. On 5 L NC oxygen.
Cardiac: S1/S2 and Regular Rhythm; No Murmur
GI: Soft, Non Distended, Normal Bowel Sounds
Musculoskeletal: No Cyanosis and No Edema
Skin: Warm. Dry.
Neuro: AO x 3
Psych: Calm
Assessment/Plan
69y M with PMH significant for hypertension, DM-II and BPH who presents to ED complaining of fevers and chills x 2 days. Patient states that he woke feeling fairly well yesterday AM. Around mid-morning he began to feel shaking chills and
general malaise. He went home from work and slept all day. He had diaphoresis during sleep and woke 'drenched' in sweat. Patient noted pain in the L lower abdomen - as well as in the R lower back. Overnight he had increased urinary frequency and
reports multiple episodes of painful, small volume urination. This AM he continued with fevers / chills, abdominal discomfort and urinary symptoms. He was seen by his PCP and UA was abnormal in the office. Patient was prescribed Bactrim DS - and
has taken one dose thus far. At home he has persistent shaking chills / rigors and presented to the ED for further evaluation.
Patient had N/V x 1 episode in the ED.
Sepsis secondary to the above associated with lactic acidosis and acute kidney injury
Complicated urinary tract infection with ESBL-Ecoli
Suspected pyelonephritis +/- Prostatitis
ESBL-E. coli bacteremia
Fever and chills - resolving
Lactic Acidosis - RESOLVED
- Patient presents with urinary symptoms, UA suggestive of infection and evidence of organ dysfunction in the form of REX and hyperbilirubinemia.
- Cefepime, Levofloxacin given initially.
- Now on Cefepime only.
- IV fluids stopped given hypoxia and fluid overload
- Supportive care with antipyretics, antiemetics, etc.
- CT scan reviewed. L renal stone but no evidence of ureteral stone, obstruction, etc.
- Perinephric stranding likely result of infection/pyelonephritis
- Note L pelvic mass / lesion - ? reactive lymph node versus inflamed / infected seminal vesicle.
- Urology evaluation for additional recommendations.
Acute Hypoxic Respiratory Failure
Acute heart failure with preserved EF
Increased interstitial markings on initial CXR 06/24/25, followed by mild basilar predominant interstitial opacification suggestive of mild interstitial edema on repeat CXR 06/25/25
New small bilateral pleural effusions with likely adjacent atelectasis, on repeat CXR from 06/25/25
- Hypoxia developed overnight 06/23/25 to 06/24/25
- Echo unremarkable/normal, EF 58%
- proBNP quite high -- suspected iatrogenic fluid overload and HFpEF
- IV Lasix 40 mg on 06/24/25 -- patient's hypoxia and shortness of breath improved
- Another 40 mg IV Lasix on 06/25/25
- Stopped IV fluids on 06/24/25
- Consider rechecking CXR on 06/27/25 or 06/28/25 to monitor new bilateral pleural effusions and pulmonary edema
- Appreciate Cardiology
- Hold home ARB given REX, no SGLT2i given UTI (can consider SGLT2i outpatient) -- may transition to lower dose ARB and MRA in the future
Asymptomatic PVCs
- Continue to monitor on telemetry
Elevated Troponin -- Suspected nonischemic myocardial injury in the setting of urosepsis and acute heart failure
- Will need outpatient stress test
REX
- SCr = 1.7--->1.4. No prior values for comparison, but very likely REX secondary to sepsis.
- IV Fluids were previously given
- Hold losartan given REX
- Follow for changes in renal function.
Thrombocytopenia - suspected from antibiotics and infection, and a dilutional component from IV fluids
- on admission platelets was 144, then dropped to 66, now gradually improving, increased to 86 as of 06/25/25
- Continue to monitor CBC
- Retic count, LDH and bilirubin are normal. Haptoglobin pending.
- Coags showed slightly elevated Prothrombin Time at 14.7, and mildly elevated aPTT at 39.6
- On 06/25/25, I discussed all of the above findings with on-call electric furnace operator Dr. Gutierrez, and he mentioned that now that it is all resolving as infection/sepsis gets better - it is likely from the sepsis - not much more for
hematology to say as the abnormal findings are resolving with treatment of infection; no hematology consult necessary
Elevated Bilirubin -- suspected from sepsis
-Total bilirubin was 2.8, then improved to 1.1
Normocytic Anemia
- Suspected from hemodilution and infection
Benign Hypertension
- Stable. Holding BP medication as noted above.
DM-II
- Stable. Hold metformin while hospitalized.
- Follow glucose and cover with SSI as needed.
- Updated A1C 6.1%
BPH
- Tamsulosin daily. Bladder scan protocol and straight cath if needed.
DVT Prophylaxis: SCDs. heparin Subq
Code Status: Full Code
On 06/23/25, 06/24/25 and 06/25/25, I spoke with and updated patient's , and I answered all of her questions and concerns to satisfaction.
Bacteremia with ESBL and hypoxia is a high risk encounter.
Anticipated Discharge: > 48 hours
Subjective/Interval History
-
Date of Service: June 25, 2025
Patient was seen and examined. He reported feeling a lot better today, shortness of breath has resolved, abdomen seems a little distended as per patient and his .
Objective Data
-
Labs:
Laboratory Results
06/25/25
06:33
WBC 5.0
Hgb 11.7 L
Hct 31.9 L
Plt Count 86 L
Sodium 136
Potassium 3.9
Chloride 107
Carbon Dioxide 25
BUN 27 H
Creatinine 1.4 H
Glucose 166 H
Calcium 7.9 L
Vital Signs:
Vital Signs
Temp Pulse Resp BP Pulse Ox
98.1 F 63 18 120/60 99
06/25/25 03:19 06/25/25 03:19 06/25/25 03:19 06/25/25 03:19 06/25/25 03:19
I&O
06/24/25 06/25/25 06/26/25
06:59 06:59 06:59
Intake Total 480 / 480 830 / 830
Output Total 1450 / 1450 2280 / 2280
Balance -970 / -970 -1450 / -1450
[2025-06-25] MEDS: MERREM 500 MG IV ×3 (10:52→21:55)
[2025-06-25 11:07] VITALS: BP 128/68
[2025-06-25 11:58] LABS: Glucose - Point of Care 171 mg/dl (70-99)
--- NOTE | 2025-06-25 13:10 | W.PN.ID1 ---
Date of Service
Date of Service: June 25, 2025
Today's Communication
Start meropenem IV.
Assessment / Plan
Complicated urinary tract infection with ESBL-Ecoli
Suspected pyelonephritis
ESBL-E. coli bacteremia
Fever - resolving
Acute pulm edema
Renal insufficiency
HTN
DM
BPH
Recommendations:
There was lab clerical error in reporting the preliminary blood cx result. The E. coli turns out to be multi-drug resistant ESBL-E. coli.
Repeat bcx's neg to date.
DC cefepime.
Start meropenem IV.
At time of dc, can transition to cipro 500mg po bid through 07/15/25.
Contact isolation.
Chief Complaint
-: UTI and Bacteremia
Subjective / Review of Systems
Had sweats last night. Feeling much improved today.
Breathing better. Abd feels bloated.
Vital Signs / Physical Exam
Vital Signs
Vital Signs
Temp Pulse Resp BP Pulse Ox
97.7 F 77 16 128/68 94
06/25/25 11:07 06/25/25 11:07 06/25/25 11:07 06/25/25 11:07 06/25/25 11:07
Physical Exam
Constitutional: No Acute Distress and Comfortable
Eyes: No Conjunctival Hemorrhage and Sclera Anicteric
Pulmonary: Rales (few rales at bases)
Gastrointestinal: Soft, Non Tender and Normal Bowel Sounds
Genito-Urinary: Jenkins and Clear Urine (dark urine)
Extremities: Negative Edema
Neurological: AO x 3
Objective Data
Lab Data
Lab Results
06/25/25 06:33
06/25/25 06:33
PT 14.7 Sec (11.4-14.6) H 06/24/25 10:26
INR 1.12 06/24/25 10:26
APTT 39.6 Sec (23.4-35.0) H 06/24/25 10:26
Estimated Creat Clear 60 ml/min 06/25/25 06:33
Lactic Acid 1.1 mmol/L (0.7-2.0) 06/22/25 18:36
Total Bilirubin 1.1 mg/dl (0.2-1.3) D 06/24/25 10:26
AST 22 U/L (17-59) 06/24/25 10:26
ALT 18 U/L (0-50) 06/24/25 10:26
Alkaline Phosphatase 56 U/L (38-126) 06/24/25 10:26
Most recent labs reviewed.
Microbiology: Discussed w/ Micro
Micro Results:
06/22/25 14:22 Urine Culture - Final
Urine Escherichia coli - ESBL
06/22/25 18:36 Blood Culture - Final
Blood/Venous Escherichia coli - ESBL
Gram Stain - Final
06/22/25 13:17 Blood Culture - Final
Blood/Venous Escherichia coli - ESBL
Gram Stain - Final
06/23/25 08:54 Blood Culture - Preliminary
Blood/Venous No Growth in 48 hours- Final report to follow
06/23/25 08:24 Blood Culture - Preliminary
Blood/Venous No Growth in 48 hours- Final report to follow
Imaging:
06/22/2025 CT abdomen/pelvis without contrast: mild left perinephric stranding and periureteral stranding possibly due to recently passed stone. Mild diverticulosis. Mild bladder wall thickening. Moderate prostate hypertrophy. No radiopaque
urinary stone is identified. A 1 mm nonobstructing left renal stone is noted, along with mild left perinephric and periureteral stranding. Please see full dictation for additional detail.
Care Review
Plan reviewed with: Physician (Dr. Nails)
--- NOTE | 2025-06-25 14:40 | W.PN.CD ---
Today's Communication / Plan
-
IV lasix 40mg now with intensive monitoring
Impression / Plan
-
HFpEF - acute.
- elevated proBNP and SOB improved with IV Lasix .
- improved but still a bit 'tight' and sob
-will give an additional dose lasix now
- echo today was normal, EF 58%, no RWMA.
- Losartan on hold for REX, no SGLT2i due to UTI bacteremia now, will reassess as an outpatient.
- may transtition to lower dose arb and MRA in the future
-chf team c/s
-updated his Sera at the time of the visit
Non-ischemic myocardial injury - acute, secondary to acute UTI E.coli bacteremia/sepsis and acute HFpEF.
- had acute SOB that improved with IV Lasix.
- denies chest pain or SOB now.
-pk 0.246
- echo is normal.
- will need outpatient stress test when recovers from this acute illness.
UTI - acute bacteremia/sepsis.
- per urology/ID.
- Jenkins catheter in place.
BPH - per urology.
Echo
SUMMARY
1. Normal biventricular size and systolic function without regional wall motion abnormality.
2. No significant valve disease.
3. No prior study available for comparison.
Physical Exam
Vital Signs/Labs
Vital Signs
Temp Pulse Resp BP Pulse Ox
97.7 F 77 16 128/68 94
06/25/25 11:07 06/25/25 11:07 06/25/25 11:07 06/25/25 11:07 06/25/25 11:07
06/24/25 06/25/25 06/26/25
06:59 06:59 06:59
Actual Weight 192 lb 11.2 oz
06/25/25 06:33
06/25/25 06:33
PT 14.7 Sec (11.4-14.6) H 06/24/25 10:26
INR 1.12 06/24/25 10:26
APTT 39.6 Sec (23.4-35.0) H 06/24/25 10:26
Magnesium 1.9 mg/dl (1.6-2.3) 06/24/25 10:26
06/24/25
10:26
Cig-C-Hgmoyxflmyf Pept 8510
LAB Results
06/24/25 06/24/25 06/24/25
10: 14: 21:03
Troponin I 0.246 H* 0.152 H* D 0.061 H* D
06/25/25
02:50
Troponin I 0.039 H* D
Physical Exam
Constitutional: No acute distress
Cardiovascular: Rhythm & rate is regular, Pedal edema is absent, Systolic murmur absent, Diastolic murmur absent and JVD present (14cm H20)
Respiratory: Respiratory effort normal, Lungs clear to auscul., Wheeze Absent, Crackles Absent and Rhonchi Absent
Neuro/Psych: AO x 3
Data Reviewed
-
Date of Service: June 25, 2025
Medical Decision Making: Review of Case with other Provider (nsr with pvc brief pSVT)
[2025-06-25 15:29] VITALS: BP 139/67
[2025-06-25] MEDS: LASIX 40 MG IV (16:02)
[2025-06-25 17:03] LABS: Glucose - Point of Care 227 mg/dl (70-99)
[2025-06-25 17:29] LABS: Albumin 2.6 g/dl (3.5-5.0)
[2025-06-25] MEDS: NOVOLOG FLEXPEN-LOW RESISTANCE 2 UNITS SC (17:30)
[2025-06-25 19:37] VITALS: BP 138/78
[2025-06-25 21:37] LABS: Glucose - Point of Care 256 mg/dl (70-99)
[2025-06-25] MEDS: MELATONIN 3 MG PO (21:55)
[2025-06-25 23:40] VITALS: BP 120/58
[2025-06-26] MEDS: MERREM 500 MG IV ×4 (03:40→21:14)
[2025-06-26] MEDS: STERILE WATER FOR INJECTION 10 ML IV ×4 (03:40→21:14)
[2025-06-26 03:50] VITALS: BP 146/82
[2025-06-26 07:30] VITALS: BP 149/66
[2025-06-26 07:32] LABS: Albumin 2.6 g/dl (3.5-5.0); Blood Urea Nitrogen 31 mg/dl (9-20); Calcium 8.0 mg/dl (8.4-10.2); Carbon Dioxide 30 mmol/L (22-30); Chloride 105 mmol/L (98-107); Estimated Creatinine Clearance 60 ml/min; Glucose 148 mg/dl (70-99); Potassium 3.5 mmol/L (3.5-5.1); Sodium 136 mmol/L (135-145); eGFR 55.09
[2025-06-26 07:36] LABS: Hematocrit 31.5 % (39.0-52.0); Hemoglobin 11.5 g/dL (13.0-18.0); Mean Corp Hgb Conc. 36.5 g/dL (33.0-37.0); Mean Corpuscular Volume 86.5 fL (80.0-94.0); Nucleated Red Blood Cells % 0 % (-); Platelet Count 83 10^3/uL (130-400); Red Cell Dist. Width 12.1 % (11.5-14.5)
--- NOTE | 2025-06-26 07:43 | W.PN.HOSP.TC ---
Today's Communication/Plan
-
Continue Meropenem
Follow repeat blood cultures
Assessment / Plan
Assessment / Plan
Physical Exam
General: Other (Ill-appearing, flushed 69y M.)
HEENT: Other (Dry MM. Neck supple.)
Respiratory: Clear to Auscultation Bilaterally. On room air.
Cardiac: S1/S2 and Regular Rhythm
GI: Soft, Non Distended, Normal Bowel Sounds
: Jenkins catheter
Musculoskeletal: No Cyanosis and No Edema
Skin: Warm. Dry.
Neuro: AO x 3
Psych: Calm
Assessment/Plan
69y M with PMH significant for hypertension, DM-II and BPH who presents to ED complaining of fevers and chills x 2 days. Patient states that he woke feeling fairly well yesterday AM. Around mid-morning he began to feel shaking chills and
general malaise. He went home from work and slept all day. He had diaphoresis during sleep and woke 'drenched' in sweat. Patient noted pain in the L lower abdomen - as well as in the R lower back. Overnight he had increased urinary frequency and
reports multiple episodes of painful, small volume urination. This AM he continued with fevers / chills, abdominal discomfort and urinary symptoms. He was seen by his PCP and UA was abnormal in the office. Patient was prescribed Bactrim DS - and
has taken one dose thus far. At home he has persistent shaking chills / rigors and presented to the ED for further evaluation.
Patient had N/V x 1 episode in the ED.
Sepsis secondary to the above associated with lactic acidosis and acute kidney injury
Complicated urinary tract infection with ESBL-Ecoli
Suspected pyelonephritis +/- Prostatitis
ESBL-E. coli bacteremia
Fever and chills - resolving
Lactic Acidosis - RESOLVED
- Patient presents with urinary symptoms, UA suggestive of infection and evidence of organ dysfunction in the form of REX and hyperbilirubinemia.
- Cefepime, Levofloxacin given initially, then switched to Cefepime only, now on Meropenem only given ESBL
- There was lab clerical error in reporting the preliminary blood culture result: the initial E. coli turned out to be multi-drug resistant ESBL-E. coli
- Repeat blood cultures 1 of 2 from 06/23/25 turned positive at 72 hours (patient was on cefepime at the time, not effective against ESBL)
- Follow repeat blood cultures
- However, patient clinically improved while on Cefepime suggesting some weak activity against the ESBL
- Continue Meropenem
- IV fluids previously stopped given hypoxia and fluid overload
- Note L pelvic mass / lesion - ? reactive lymph node versus inflamed / infected seminal vesicle.
- Urology evaluation for additional recommendations, irrigation performed on 06/26/25.
- Contact isolation
Possible pelvic mass such as a lymph node versus prominent seminal vesicle on CT Imaging this hospitalization
-Nonurgent enhanced CT examination of the pelvis is recommended
1 mm nonobstructing left renal stone
Acute Hypoxic Respiratory Failure
Acute heart failure with preserved EF
Increased interstitial markings on initial CXR 06/24/25, followed by mild basilar predominant interstitial opacification suggestive of mild interstitial edema on repeat CXR 06/25/25
New small bilateral pleural effusions with likely adjacent atelectasis, on repeat CXR from 06/25/25
- Stopped IV fluids on 06/24/25
- Hypoxia developed overnight 06/23/25 to 06/24/25
- Echo unremarkable/normal, EF 58%
- proBNP quite high -- suspected iatrogenic fluid overload and HFpEF
- IV Lasix 40 mg on 06/24/25 -- patient's hypoxia and shortness of breath improved
- Another 40 mg IV Lasix on 06/25/25
- NOW ON ROOM AIR
- Recheck proBNP to see whether more diuresis needed
- Appreciate Cardiology
- Hold home ARB given REX, no SGLT2i given UTI (can consider SGLT2i outpatient) -- may transition to lower dose ARB and MRA in the future
Asymptomatic PVCs
- Continue to monitor on telemetry
Elevated Troponin -- Suspected nonischemic myocardial injury in the setting of urosepsis and acute heart failure
- Will need outpatient stress test
Acute Kidney Injury
- Suspected from sepsis
- SCr = 1.7--->1.4. No prior values for comparison, but very likely REX secondary to sepsis.
- IV Fluids were previously given
- Hold losartan given REX
- Follow for changes in renal function.
Thrombocytopenia - suspected from antibiotics and infection, and a dilutional component from IV fluids
- on admission platelets was 144, then dropped to 66, now gradually improving, increased to 86 as of 06/25/25
- Continue to monitor CBC
- Retic count, LDH and bilirubin are normal. Haptoglobin elevated as would be expected from inflammation.
- Coags showed slightly elevated Prothrombin Time at 14.7, and mildly elevated aPTT at 39.6
- On 06/25/25, I discussed all of the above findings with on-call wage and salary administrator Dr. Gutierrez, and he mentioned that now that it is all resolving as infection/sepsis gets better - it is likely from the sepsis - not much more for
hematology to say as the abnormal findings are resolving with treatment of infection; no hematology consult necessary
- On 06/26/25, I discussed the platelets trend (86 to 83 on 06/26/25) with on-call wage and salary administrator Dr. Gutierrez and he said improvement can take several weeks
Elevated Bilirubin -- suspected from sepsis
-Total bilirubin was 2.8, then improved to 1.1
Normocytic Anemia
- Suspected from hemodilution and infection
Benign Hypertension
- Stable. Holding BP medication as noted above.
Type 2 Diabetes Mellitus
Hyperglycemia
- Stable. Hold metformin while hospitalized.
- Follow glucose and cover with SSI as needed.
- Updated A1C 6.1%
BPH
- Continue Tamsulosin daily
Diverticulosis
DVT Prophylaxis: SCDs. Heparin Subq
Code Status: Full Code
On 06/23/25, 06/24/25, 06/25/25 and 06/26/25, I spoke with and updated patient's , and I answered all of her questions and concerns to satisfaction.
Bacteremia with ESBL is a high risk encounter.
Anticipated Discharge: > 48 hours
Subjective/Interval History
-
Date of Service: June 26, 2025
Patient was seen and examined. He reported doing fine today, no new symptoms or issues.
Objective Data
-
Labs:
Laboratory Results
06/26/25
06:11
WBC 4.7 L
Hgb 11.5 L
Hct 31.5 L
Plt Count 83 L
Sodium 136
Potassium 3.5
Chloride 105
Carbon Dioxide 30
BUN 31 H
Creatinine 1.4 H
Glucose 148 H
Calcium 8.0 L
Vital Signs:
Vital Signs
Temp Pulse Resp BP Pulse Ox
98.3 F 72 16 146/82 94
06/26/25 03:50 06/26/25 03:50 06/26/25 03:50 06/26/25 03:50 06/26/25 03:50
I&O
06/25/25 06/26/25 06/27/25
06:59 06:59 06:59
Intake Total 830 / 830 1900 / 1900
Output Total 2280 / 2280 2775 / 2775
Balance -1450 / -1450 -875 / -875
[2025-06-26] MEDS: HEPARIN 5000 UNITS SC ×2 (07:45→20:20)
[2025-06-26] MEDS: FLOMAX 0.4 MG PO (07:45)
[2025-06-26 08:14] LABS: Glucose - Point of Care 168 mg/dl (70-99)
[2025-06-26] MEDS: NOVOLOG FLEXPEN-LOW RESISTANCE 1 UNITS SC (08:59)
[2025-06-26 11:30] VITALS: BP 143/72
[2025-06-26 11:40] LABS: Glucose - Point of Care 202 mg/dl (70-99)
[2025-06-26] MEDS: NOVOLOG FLEXPEN-LOW RESISTANCE 2 UNITS SC ×2 (11:50→17:47)
--- NOTE | 2025-06-26 12:28 | W.PN.ID1 ---
Date of Service
Date of Service: June 26, 2025
Today's Communication
Continue meropenem IV (d2)
Repeat bcx's x 2
Assessment / Plan
Complicated urinary tract infection with ESBL-Ecoli
Suspected pyelonephritis
ESBL-E. coli bacteremia
Fever - resolving
Acute pulm edema
Renal insufficiency
HTN
DM
BPH
Recommendations:
There was lab clerical error in reporting the preliminary blood cx result. The E. coli turns out to be multi-drug resistant ESBL-E. coli.
06/23 Repeat bcx's 1 of 2 turned positive at 72 hr; pt at cefepime at the time, not effective against ESBL
Continue meropenem IV (d2)
Repeat bcx's x 2
At time of dc, can transition to cipro 500mg po bid through 07/15/25.
Contact isolation.
Chief Complaint
-: UTI and Bacteremia
Subjective / Review of Systems
Feels much improved. Slept well. Good appetite. No SOB
Vital Signs / Physical Exam
Vital Signs
Vital Signs
Temp Pulse Resp BP Pulse Ox
98.2 F 79 16 143/72 96
06/26/25 11:30 06/26/25 11:30 06/26/25 11:30 06/26/25 11:30 06/26/25 11:30
Physical Exam
Constitutional: No Acute Distress and Comfortable
Cardiovascular: Regular Rate and S1/S2
Pulmonary: Clear
Gastrointestinal: Soft, Non Tender and Non Distended
Genito-Urinary: Jenkins and Clear Urine; Negative CVA Tenderness
Extremities: Negative Edema
Neurological: AO x 3
Objective Data
Lab Data
Lab Results
06/26/25 06:11
06/26/25 06:11
PT 14.7 Sec (11.4-14.6) H 06/24/25 10:26
INR 1.12 06/24/25 10:26
APTT 39.6 Sec (23.4-35.0) H 06/24/25 10:26
Estimated Creat Clear 60 ml/min 06/26/25 06:11
Lactic Acid 1.1 mmol/L (0.7-2.0) 06/22/25 18:36
Total Bilirubin 1.1 mg/dl (0.2-1.3) D 06/24/25 10:26
AST 22 U/L (17-59) 06/24/25 10:26
ALT 18 U/L (0-50) 06/24/25 10:26
Alkaline Phosphatase 56 U/L (38-126) 06/24/25 10:26
Most recent labs reviewed.
Micro Results:
06/23/25 08:54 Blood Culture - Preliminary
Blood/Venous Positive culture in progress
Gram Stain - Preliminary
06/23/25 08:24 Blood Culture - Preliminary
Blood/Venous No Growth in 72 hours- Final report to follow
06/22/25 14:22 Urine Culture - Final
Urine Escherichia coli - ESBL
06/22/25 18:36 Blood Culture - Final
Blood/Venous Escherichia coli - ESBL
Gram Stain - Final
06/22/25 13:17 Blood Culture - Final
Blood/Venous Escherichia coli - ESBL
Gram Stain - Final
Imaging:
06/22/2025 CT abdomen/pelvis without contrast: mild left perinephric stranding and periureteral stranding possibly due to recently passed stone. Mild diverticulosis. Mild bladder wall thickening. Moderate prostate hypertrophy. No radiopaque
urinary stone is identified. A 1 mm nonobstructing left renal stone is noted, along with mild left perinephric and periureteral stranding. Please see full dictation for additional detail.
Care Review
Plan reviewed with: Physician (Dr. Nails)
--- NOTE | 2025-06-26 12:42 | W.PN.URO.CBU ---
Today's Communication / Plan
-
Continue IV antibiotics - transition to Cipro per ID
Continue tamsulosin 0.4 mg qhs
Continue tadalafil 5 mg daily (BPH indication)
Maintain Jenkins catheter - possible VT prior to discharge
Will d/w Dr. Vazquez.
D/w patient and spouse.
Assessment / Plan
-
E. coli bacteremia/urosepsis
Longstanding elevated PSA
Possible left pelvic mass
Diagnosis
-
Date of Service: June 26, 2025
-
Patient Diagnosis:
ESBL E. coli bacteremia/urosepsis
REX
Longstanding PSA elevation
Left pelvic lymph node v. mass on CT scan 06/22/25
Subjective
-
Feels well.
Jenkins catheter draining clear after irrigation this AM to flush small debris.
Afebrile.
Objective
-
Vital Signs
Temp Pulse Resp BP Pulse Ox
98.2 F 79 16 143/72 96
06/26/25 11:30 06/26/25 11:30 06/26/25 11:30 06/26/25 11:30 06/26/25 11:30
Intake and Output
06/25/25 06/26/25 06/27/25
06:59 06:59 06:59
Intake Total 830 / 830 1900 / 1900
Output Total 2280 / 2280 2775 / 2775 0 / 0
Balance -1450 / -1450 -875 / -875 0 / 0
Intake:
Oral fluids 480 / 480 1900 / 1900
IV fluids (Total) 350 / 350
Output:
Urine, Jenkins 2280 / 2280 2775 / 2775
True urine output from hand 0 / 0
irrigation
Laboratory Results
06/26/25 06:11
06/26/25 06:11
Physical Exam
-
General - well developed, well nourished, no acute distress
Abdomen - soft, non-tender
- Jenkins catheter w/ clear yellow UOP
Skin - warm & dry with no rash
Neuro - AOx3, no motor deficits
Extremities - no clubbing, no cyanosis, no edema
Care Review
Data Reviewed
Discussed with: Hospitalist and Nursing
CT Scan: Report Pers Reviewed and Image Pers Reviewed
Total Time Spent with Patient (in minutes): 45
--- NOTE | 2025-06-26 14:47 | W.PN.CD ---
Today's Communication / Plan
-
check probnp
Impression / Plan
-
HFpEF - acute.
- elevated proBNP and SOB improved with IV Lasix .
- improved but still a bit 'tight' and sob,yet he feels great with ambulation
-appears euvolemic
-will check probnp, if no improvement trial one more dose of lasix
- echo today was normal, EF 58%, no RWMA.
- Losartan on hold for REX, no SGLT2i due to UTI bacteremia now, will reassess as an outpatient.
- may transition to lower dose arb and MRA in the future
-chf team c/s
-updated his Sera at the time of the visit
PVCS; asx
Non-ischemic myocardial injury - acute, secondary to acute UTI E.coli bacteremia/sepsis and acute HFpEF.
- had acute SOB that improved with IV Lasix.
- denies chest pain or SOB now.
-pk 0.246
- echo is normal.
- will need outpatient stress test when recovers from this acute illness.
UTI - acute bacteremia/sepsis.
- per urology/ID.
- Jenkins catheter in place.
BPH - per urology.
Echo
SUMMARY
1. Normal biventricular size and systolic function without regional wall motion abnormality.
2. No significant valve disease.
3. No prior study available for comparison.
Physical Exam
Vital Signs/Labs
Vital Signs
Temp Pulse Resp BP Pulse Ox
98.2 F 79 16 143/72 96
06/26/25 11:30 06/26/25 11:30 06/26/25 11:30 06/26/25 11:30 06/26/25 11:30
06/25/25 06/26/25 06/27/25
06:59 06:59 06:59
Actual Weight 192 lb 11.2 oz
06/26/25 06:11
06/26/25 06:11
PT 14.7 Sec (11.4-14.6) H 06/24/25 10:26
INR 1.12 06/24/25 10:26
APTT 39.6 Sec (23.4-35.0) H 06/24/25 10:26
Magnesium 1.9 mg/dl (1.6-2.3) 06/24/25 10:26
06/24/25
10:
[id number] Pept 8510
LAB Results
06/24/25 06/24/25 06/24/25
10: 14: 21:03
Troponin I 0.246 H* 0.152 H* D 0.061 H* D
06/25/25
02:50
Troponin I 0.039 H* D
Physical Exam
Constitutional: No acute distress
Cardiovascular: Rhythm & rate is regular, Pedal edema is absent, JVD pressure is normal, Systolic murmur absent and Diastolic murmur absent
Respiratory: Respiratory effort normal, Lungs clear to auscul., Wheeze Absent, Crackles Absent and Rhonchi Absent
Data Reviewed
-
Date of Service: June 26, 2025
EKG: Other (sinus with pvcs, pSVT)
[2025-06-26 15:30] VITALS: BP 152/79
[2025-06-26 15:44] LABS: Glucose - Point of Care 216 mg/dl (70-99)
[2025-06-26 20:09] VITALS: BP 153/88
[2025-06-26] MEDS: MELATONIN 3 MG PO (21:17)
[2025-06-26 22:07] LABS: Glucose - Point of Care 170 mg/dl (70-99)
[2025-06-26 22:53] VITALS: BP 146/70
[2025-06-27] MEDS: MERREM 500 MG IV ×4 (03:46→21:17)
[2025-06-27] MEDS: STERILE WATER FOR INJECTION 10 ML IV ×4 (03:46→21:17)
[2025-06-27 04:31] VITALS: BP 141/61
[2025-06-27 04:54] VITALS: BMI 24.4
[2025-06-27 07:20] LABS: Glucose - Point of Care 160 mg/dl (70-99)
[2025-06-27 07:30] VITALS: BP 152/80
--- NOTE | 2025-06-27 07:30 | W.PN.URO.CBU ---
Today's Communication / Plan
-
Tamsulosin 0.4 mg qhs (continue on discharge)
Tadalafil 5 mg daily
Continue IV abx => transition to Cipro through 07/15 per ID
F/U repeat BCx
Voiding trial tomorrow AM 06/28 (ordered)
Assessment / Plan
-
E. coli bacteremia/urosepsis
Longstanding elevated PSA (negative prostate biopsy)
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
Diagnosis
-
Date of Service: June 27, 2025
-
Patient Diagnosis:
ESBL E. coli bacteremia/urosepsis
REX
Longstanding PSA elevation
Left pelvic lymph node v. mass on CT scan 06/22/25
Subjective
-
Urine clear in catheter tubing.
Feels significantly better since admission.
Afebrile.
Denies pelvic/flank pain.
Objective
-
Vital Signs
Temp Pulse Resp BP Pulse Ox
98.1 F 68 16 152/80 94
06/27/25 07:30 06/27/25 07:30 06/27/25 07:30 06/27/25 07:30 06/27/25 07:30
Intake and Output
06/26/25 06/27/25 06/28/25
06:59 06:59 06:59
Intake Total 1900 / 1900 660 / 660
Output Total 2775 / 2775 875 / 875
Balance -875 / -875 -215 / -215
Intake:
Oral fluids 1900 / 1900 660 / 660
Output:
Urine, Jenkins 2775 / 2775 225 / 225
Urine, Voided 650 / 650
True urine output from hand 0 / 0
irrigation
Laboratory Results
06/27/25 07:12
06/27/25 07:12
Physical Exam
-
General - well developed, well nourished, no acute distress
Abdomen - soft, non-tender
- Jenkins catheter draining clear yellow urine
Skin - warm & dry with no rash
Neuro - AOx3, no motor deficits
Extremities - no clubbing, no cyanosis, no edema
Counseling
-
D/w patient and spouse.
D/w Hospitalist.
D/w Dr. Vazquez.
Care Review
Data Reviewed
Discussed with: Hospitalist and Family
CT Scan: Report Pers Reviewed and Image Pers Reviewed
Total Time Spent with Patient (in minutes): 20
[2025-06-27 08:02] LABS: ALT (SGPT) 30 U/L (0-50); AST (SGOT) 22 U/L (17-59); Albumin 2.6 g/dl (3.5-5.0); Alkaline Phosphatase 61 U/L (38-126); Blood Urea Nitrogen 27 mg/dl (9-20); Calcium 8.3 mg/dl (8.4-10.2); Carbon Dioxide 30 mmol/L (22-30); Chloride 104 mmol/L (98-107); Estimated Creatinine Clearance 69 ml/min; Glucose 173 mg/dl (70-99); Potassium 4.0 mmol/L (3.5-5.1); Sodium 134 mmol/L (135-145); Total Protein 5.1 g/dl (6.3-8.2); eGFR > 60.00
[2025-06-27 08:23] LABS: Hematocrit 31.2 % (39.0-52.0); Hemoglobin 11.2 g/dL (13.0-18.0); Mean Corp Hgb Conc. 35.9 g/dL (33.0-37.0); Mean Corpuscular Volume 85.2 fL (80.0-94.0); Nucleated Red Blood Cells % 0 % (-); Platelet Count 101 10^3/uL (130-400); Red Cell Dist. Width 11.9 % (11.5-14.5)
[2025-06-27] MEDS: FLOMAX 0.4 MG PO (08:27)
[2025-06-27] MEDS: HEPARIN 5000 UNITS SC ×2 (08:27→19:58)
[2025-06-27] MEDS: NOVOLOG FLEXPEN-LOW RESISTANCE 1 UNITS SC (08:27)
--- NOTE | 2025-06-27 09:34 | CM ---
Reviewed chart. Met with pt and at bedside. Continues on IV ABX; will transfer to PO at discharge.
Plan: Home no needs
--- NOTE | 2025-06-27 09:51 | W.PN.CD ---
Addendum entered and electronically signed by Quinn Palma MD 06/27/25 10:03:
No SGLT2-I now given his uti/urosepsis
Original Note:
Today's Communication / Plan
-
Will resume ARB
Add MRA and SGLT2-I as outpatient
Watch for need for PO Lasix
Outpt stress test
Impression / Plan
-
Acute HFpEF - acute.
- Now compensated, still feels like he can't take deep breath but no THAKUR, PND, orthopnea
- GDMT:
- ARB has been held for REX => will resume
- Can add MRA and SGLT2-I as outpatient
- Received Lasix on 06/24/2025 and on 06/25/2025 => Watch for need for PO Lasix
PVCS; asx
Non-ischemic myocardial injury secondary to acute UTI E. coli bacteremia/sepsis and acute HFpEF. Peak Trop 0.246
Urology
- E. coli bacteremia/urosepsis
- Longstanding elevated PSA (negative prostate biopsy)
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
Subjective: Improved
Echo 06/24/2025
1. Normal biventricular size and systolic function without regional wall motion abnormality.
2. No significant valve disease.
3. No prior study available for comparison.
Physical Exam
Vital Signs/Labs
Vital Signs
Temp Pulse Resp BP Pulse Ox
98.1 F 68 16 152/80 94
06/27/25 07:30 06/27/25 07:30 06/27/25 07:30 06/27/25 07:30 06/27/25 07:30
06/26/25 06/27/25 06/28/25
06:59 06:59 06:59
Actual Weight 86.296 kg
06/27/25 07:12
06/27/25 07:12
PT 14.7 Sec (11.4-14.6) H 06/24/25 10:26
INR 1.12 06/24/25 10:26
APTT 39.6 Sec (23.4-35.0) H 06/24/25 10:26
Magnesium 1.9 mg/dl (1.6-2.3) 06/24/25 10:26
06/24/25 06/26/25
10: 06:11
[id number] Pept 8510 1600
LAB Results
06/24/25 06/24/25 06/24/25
10: 14:26 21:03
Troponin I 0.246 H* 0.152 H* D 0.061 H* D
06/25/25
02:50
Troponin I 0.039 H* D
Physical Exam
Constitutional: No acute distress
Cardiovascular: Rhythm & rate is regular and Pedal edema is absent
Respiratory: Respiratory effort normal and Lungs clear to auscul.
Data Reviewed
-
Date of Service: June 27, 2025
--- NOTE | 2025-06-27 10:40 | W.PN.HOSP.TC ---
Today's Communication/Plan
-
Continue antibiotics
Assessment / Plan
Assessment / Plan
Gen-AAOx3, NAD
HEENT-NC, AT, anicteric, clear oral mm
Neck-supple
CV-reg, no M, +S1/S2
Lungs-clear B/L
Abd-soft, NT, ND
Ext-no edema
Musculoskeletal-no cyanosis, clubbing
Skin-warm and dry
Neuro-grossly non-focal
Psych-calm, cooperative
Sepsis -secondary to acute pyelonephritis, associated with lactic acidosis and acute kidney injury
Complicated urinary tract infection with ESBL-Ecoli
Suspected pyelonephritis +/- Prostatitis
ESBL-E. coli bacteremia
Fever and chills - resolving
Lactic Acidosis - RESOLVED
- Patient presents with urinary symptoms, UA suggestive of infection and evidence of organ dysfunction in the form of REX and hyperbilirubinemia.
- Cefepime, Levofloxacin given initially, then switched to Cefepime only, now on Meropenem only given ESBL
- There was lab clerical error in reporting the preliminary blood culture result: the initial E. coli turned out to be multi-drug resistant ESBL-E. coli
- Repeat blood cultures 1 of 2 from 06/23/25 turned positive at 72 hours (patient was on cefepime at the time, not effective against ESBL)
- Follow repeat blood cultures
- However, patient clinically improved while on Cefepime suggesting some weak activity against the ESBL
- Continue Meropenem
- IV fluids previously stopped given hypoxia and fluid overload
- Note L pelvic mass / lesion - ? reactive lymph node versus inflamed / infected seminal vesicle.
- Urology evaluation for additional recommendations, irrigation performed on 06/26/25.
06/26 blood cultures pending.
Possible pelvic mass such as a lymph node versus prominent seminal vesicle on CT Imaging this hospitalization
-Nonurgent enhanced CT examination of the pelvis is recommended
1 mm nonobstructing left renal stone
Acute Hypoxic Respiratory Failure
Acute heart failure with preserved EF
Increased interstitial markings on initial CXR 06/24/25, followed by mild basilar predominant interstitial opacification suggestive of mild interstitial edema on repeat CXR 06/25/25
New small bilateral pleural effusions with likely adjacent atelectasis, on repeat CXR from 06/25/25
- Stopped IV fluids on 06/24/25
- Hypoxia developed overnight 06/23/25 to 06/24/25
- Echo unremarkable/normal, EF 58%
- proBNP quite high -- suspected iatrogenic fluid overload and HFpEF
- IV Lasix 40 mg on 06/24/25 -- patient's hypoxia and shortness of breath improved
- Another 40 mg IV Lasix on 06/25/25
- NOW ON ROOM AIR
- BNP improved.
- Appreciate Cardiology
- Hold home ARB given REX, no SGLT2i given UTI (can consider SGLT2i outpatient) -- may transition to lower dose ARB and MRA in the future
Defer diuretics to cardiology.
Asymptomatic PVCs
- Continue to monitor on telemetry
Elevated Troponin -- Suspected nonischemic myocardial injury in the setting of urosepsis and acute heart failure
- Will need outpatient stress test
Acute Kidney Injury
- Suspected from sepsis
- SCr = 1.7--->1.4. No prior values for comparison, but very likely REX secondary to sepsis.
- IV Fluids were previously given
- Hold losartan given REX
- Follow for changes in renal function.
Thrombocytopenia - suspected from antibiotics and infection, and a dilutional component from IV fluids
- on admission platelets was 144, then dropped to 66, now gradually improving, increased to 86 as of 06/25/25
- Continue to monitor CBC
- Retic count, LDH and bilirubin are normal. Haptoglobin elevated as would be expected from inflammation.
- Coags showed slightly elevated Prothrombin Time at 14.7, and mildly elevated aPTT at 39.6
- On 06/25/25, I discussed all of the above findings with on-call fan blade aligner Dr. Gutierrez, and he mentioned that now that it is all resolving as infection/sepsis gets better - it is likely from the sepsis - not much more for
hematology to say as the abnormal findings are resolving with treatment of infection; no hematology consult necessary
- On 06/26/25, I discussed the platelets trend (86 to 83 on 06/26/25) with on-call fan blade aligner Dr. Gutierrez and he said improvement can take several weeks
Elevated Bilirubin -- suspected from sepsis
-Total bilirubin was 2.8, then improved to 1.1
Normocytic Anemia
- Suspected from hemodilution and infection
Benign Hypertension
- Stable. Holding BP medication as noted above.
Type 2 Diabetes Mellitus
Hyperglycemia
- Stable. Hold metformin while hospitalized.
- Follow glucose and cover with SSI as needed.
- Updated A1C 6.1%
BPH -with acute urinary retention. Jenkins catheter remains in place. Jenkins to be removed 06/28 per urology, voiding trial.
- Continue Tamsulosin daily
Chronically elevated PSA with negative prostate biopsy.
Diverticulosis
DVT Prophylaxis: SCDs. Heparin Subq
Code Status: Full Code
On 06/23/25, 06/24/25, 06/25/25 and 06/26/25, I spoke with and updated patient's , and I answered all of her questions and concerns to satisfaction.
Bacteremia with ESBL is a high risk encounter.
Anticipated Discharge: Within 24 hours
Subjective/Interval History
-
Date of Service: June 27, 2025
Patient seen and examined. No complaints. Denies shortness of breath.
Objective Data
-
Labs:
Laboratory Results
06/27/25
07:12
WBC 4.4 L
Hgb 11.2 L
Hct 31.2 L
Plt Count 101 L D
Sodium 134 L
Potassium 4.0
Chloride 104
Carbon Dioxide 30
BUN 27 H
Creatinine 1.2
Glucose 173 H
Calcium 8.3 L
Total Bilirubin 0.7
AST 22
ALT 30
Alkaline Phosphatase 61
Vital Signs:
Vital Signs
Temp Pulse Resp BP Pulse Ox
98.1 F 68 16 152/80 94
06/27/25 07:30 06/27/25 07:30 06/27/25 07:30 06/27/25 07:30 06/27/25 07:30
I&O
06/26/25 06/27/25 06/28/25
06:59 06:59 06:59
Intake Total 1900 / 1900 660 / 660
Output Total 2775 / 2775 875 / 875
Balance -875 / -875 -215 / -215
Review of Systems
-
History Source: Patient
All other systems: Reviewed and negative
--- NOTE | 2025-06-27 11:03 | W.PN.ID1 ---
Date of Service
Date of Service: June 27, 2025
Today's Communication
At time of dc, can transition to cipro 500mg po bid through 07/15/25.
From ID standpoint, OK to dc.
Assessment / Plan
Complicated urinary tract infection with ESBL-Ecoli
Suspected pyelonephritis
ESBL-E. coli bacteremia
Fever - resolved
Acute pulm edema -resolved
Renal insufficiency - improving
HTN
DM
BPH
Recommendations:
There was lab clerical error in reporting the preliminary blood cx result. The E. coli turns out to be multi-drug resistant ESBL-E. coli.
06/23 Repeat bcx's 1 of 2 turned positive at 72 hr; pt at cefepime at the time, not effective against ESBL
Continue meropenem IV (d3)
Repeat bcx's x 2 pending.
At time of dc, can transition to cipro 500mg po bid through 07/15/25.
Contact isolation.
For voiding trial, per Urology.
From ID standpoint, OK to dc.
Chief Complaint
-: UTI and Bacteremia
Subjective / Review of Systems
Feels well today.
Vital Signs / Physical Exam
Vital Signs
Vital Signs
Temp Pulse Resp BP Pulse Ox
98.1 F 68 16 152/80 94
06/27/25 07:30 06/27/25 07:30 06/27/25 07:30 06/27/25 07:30 06/27/25 07:30
Physical Exam
Constitutional: No Acute Distress and Comfortable
Cardiovascular: Regular Rate and S1/S2
Pulmonary: Clear
Gastrointestinal: Soft, Non Tender and Non Distended
Genito-Urinary: Jenkins and Clear Urine; Negative CVA Tenderness
Extremities: Negative Edema
Neurological: AO x 3
Objective Data
Lab Data
Lab Results
06/27/25 07:12
06/27/25 07:12
PT 14.7 Sec (11.4-14.6) H 06/24/25 10:26
INR 1.12 06/24/25 10:26
APTT 39.6 Sec (23.4-35.0) H 06/24/25 10:26
Estimated Creat Clear 69 ml/min 06/27/25 07:12
Lactic Acid 1.1 mmol/L (0.7-2.0) 06/22/25 18:36
Total Bilirubin 0.7 mg/dl (0.2-1.3) 06/27/25 07:12
AST 22 U/L (17-59) 06/27/25 07:12
ALT 30 U/L (0-50) 06/27/25 07:12
Alkaline Phosphatase 61 U/L (38-126) 06/27/25 07:12
Most recent labs reviewed.
Micro Results:
06/23/25 08:54 Blood Culture - Preliminary
Blood/Venous Escherichia coli - ESBL
Gram Stain - Preliminary
06/23/25 08:24 Blood Culture - Preliminary
Blood/Venous No Growth in 4 days- Final report to follow
06/26/25 13:36 Blood Culture - Pending
Blood/Venous
06/26/25 12:46 Blood Culture - Pending
Blood/Venous
06/22/25 14:22 Urine Culture - Final
Urine Escherichia coli - ESBL
06/22/25 18:36 Blood Culture - Final
Blood/Venous Escherichia coli - ESBL
Gram Stain - Final
06/22/25 13:17 Blood Culture - Final
Blood/Venous Escherichia coli - ESBL
Gram Stain - Final
Imaging:
06/22/2025 CT abdomen/pelvis without contrast: mild left perinephric stranding and periureteral stranding possibly due to recently passed stone. Mild diverticulosis. Mild bladder wall thickening. Moderate prostate hypertrophy. No radiopaque
urinary stone is identified. A 1 mm nonobstructing left renal stone is noted, along with mild left perinephric and periureteral stranding. Please see full dictation for additional detail.
[2025-06-27 11:18] LABS: Glucose - Point of Care 261 mg/dl (70-99)
[2025-06-27 11:30] VITALS: BP 147/68
[2025-06-27] MEDS: NOVOLOG FLEXPEN-LOW RESISTANCE 3 UNITS SC (12:39)
[2025-06-27 15:51] LABS: Glucose - Point of Care 210 mg/dl (70-99)
[2025-06-27 16:00] VITALS: BP 150/72
[2025-06-27] MEDS: NOVOLOG FLEXPEN-LOW RESISTANCE 2 UNITS SC (17:03)
[2025-06-27 17:37] LABS: Glucose - Point of Care 183 mg/dl (70-99)
--- NOTE | 2025-06-27 17:51 | PTCARENOTE ---
Patient ordered for TOV at 0600 06/28/[address] Akhtar, patent is stable to discharge; thus, if he voids, he can discharge to home tomorrow.
[2025-06-27] MEDS: MELATONIN 3 MG PO (21:17)
[2025-06-27 21:27] LABS: Glucose - Point of Care 158 mg/dl (70-99)
[2025-06-27 22:30] VITALS: BP 162/90
[2025-06-28] MEDS: STERILE WATER FOR INJECTION 10 ML IV (03:43)
[2025-06-28] MEDS: MERREM 500 MG IV (03:44)
[2025-06-28 05:16] VITALS: BMI 23.9
[2025-06-28 07:40] LABS: Glucose - Point of Care 183 mg/dl (70-99)
[2025-06-28 07:59] VITALS: BP 162/82
[2025-06-28] MEDS: COZAAR 100 MG PO (08:55)
[2025-06-28] MEDS: FLOMAX 0.4 MG PO (08:55)
[2025-06-28] MEDS: NOVOLOG FLEXPEN-LOW RESISTANCE 1 UNITS SC (08:57)
[2025-06-28] MEDS: HEPARIN SC (08:59)
--- NOTE | 2025-06-28 09:39 | W.PN.URO.CBU ---
Today's Communication / Plan
-
Home today
Outpatient follow up scheduled
MRI pelvis 07/29/25
Assessment / Plan
-
E. coli bacteremia/urosepsis
Longstanding elevated PSA (negative prostate biopsy)
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
Diagnosis
-
Date of Service: June 28, 2025
-
Patient Diagnosis:
ESBL E. coli bacteremia/urosepsis
REX: resolving
Longstanding PSA elevation
Left pelvic lymph node v. mass on CT scan 06/22/25
Subjective
-
Feels well
Has voided this AM
Objective
-
Vital Signs
Temp Pulse Resp BP Pulse Ox
97.7 F 71 18 162/82 97
06/28/25 07:59 06/28/25 08:55 06/28/25 07:59 06/28/25 08:55 06/28/25 07:59
Intake and Output
06/27/25 06/28/25 06/29/25
06:59 06:59 06:59
Intake Total 660 / 660 540 / 540
Output Total 875 / 875 2100 / 2100
Balance -215 / -215 -1560 / -1560
Intake:
Oral fluids 660 / 660 540 / 540
Output:
Urine, Jenkins 225 / 225 1000 / 1000
Urine, Voided 650 / 650 1100 / 1100
True urine output from hand 0 / 0
irrigation
Laboratory Results
06/27/25 07:12
06/27/25 07:12
Review of Systems
-
Constitutional: Fatigue
Respiratory: No Symptoms
Cardiac: No Symptoms
Abdomen/GI: No Symptoms
Neurological: No Symptoms
Physical Exam
-
General - well developed, well nourished, no acute distress
Abdomen - soft, non-tender, no CVAT
Genitalia - normal
Skin - warm & dry with no rash
--- NOTE | 2025-06-28 09:45 | W.PN.HOSP.TC ---
Addendum entered and electronically signed by Bin Akhtar DO 06/28/25 14:40:
Patient did well with voiding trial. Bladder scan 94 cc this morning after Jenkins removal.
Spoke with urology Dr. Vazquez, plan for pelvic MRI in July which will also follow-up on the suspected inflammatory lymph node noted on CT scan from 06/22.
Stable for discharge home today.
Original Note:
Today's Communication/Plan
-
Voiding trial
Discharge
Assessment / Plan
Assessment / Plan
Gen-AAOx3, NAD
HEENT-NC, AT, anicteric, clear oral mm
Neck-supple
CV-reg, no M, +S1/S2
Lungs-clear B/L
Abd-soft, NT, ND
Ext-no edema
Musculoskeletal-no cyanosis, clubbing
Skin-warm and dry
Neuro-grossly non-focal
Psych-calm, cooperative
Sepsis -secondary to acute pyelonephritis, associated with lactic acidosis and acute kidney injury. Sepsis resolved.
Complicated urinary tract infection with ESBL-Ecoli
Suspected pyelonephritis +/- Prostatitis
ESBL-E. coli bacteremia
Fever and chills - resolving
Lactic Acidosis - RESOLVED
- Patient presents with urinary symptoms, UA suggestive of infection and evidence of organ dysfunction in the form of REX and hyperbilirubinemia.
- Cefepime, Levofloxacin given initially, then switched to Cefepime only, now on Meropenem only given ESBL
- There was lab clerical error in reporting the preliminary blood culture result: the initial E. coli turned out to be multi-drug resistant ESBL-E. coli
- Repeat blood cultures 1 of 2 from 06/23/25 turned positive at 72 hours (patient was on cefepime at the time, not effective against ESBL)
- Follow repeat blood cultures
- However, patient clinically improved while on Cefepime suggesting some weak activity against the ESBL
- Transition to ciprofloxacin twice daily on discharge until 07/15 as per ID.
- IV fluids previously stopped given hypoxia and fluid overload
- Note L pelvic mass / lesion - ? reactive lymph node versus inflamed / infected seminal vesicle.
- Urology evaluation for additional recommendations, irrigation performed on 06/26/25.
06/26 blood cultures negative so far.
Possible pelvic mass such as a lymph node versus prominent seminal vesicle on CT Imaging this hospitalization
-Nonurgent enhanced CT examination of the pelvis is recommended
1 mm nonobstructing left renal stone
Acute Hypoxic Respiratory Failure
Acute heart failure with preserved EF
Increased interstitial markings on initial CXR 06/24/25, followed by mild basilar predominant interstitial opacification suggestive of mild interstitial edema on repeat CXR 06/25/25
New small bilateral pleural effusions with likely adjacent atelectasis, on repeat CXR from 06/25/25
- Stopped IV fluids on 06/24/25
- Hypoxia developed overnight 06/23/25 to 06/24/25
- Echo unremarkable/normal, EF 58%
- proBNP quite high -- suspected iatrogenic fluid overload and HFpEF
- IV Lasix 40 mg on 06/24/25 -- patient's hypoxia and shortness of breath improved
- Another 40 mg IV Lasix on 06/25/25
- NOW ON ROOM AIR
- BNP improved.
- Appreciate Cardiology
- Hold home ARB given REX, no SGLT2i given UTI (can consider SGLT2i outpatient) -- may transition to lower dose ARB and MRA in the future
Defer diuretics to cardiology.
Asymptomatic PVCs
- Continue to monitor on telemetry
Elevated Troponin -- Suspected nonischemic myocardial injury in the setting of urosepsis and acute heart failure
- Will need outpatient stress test
Acute Kidney Injury -resolved.
- Suspected from sepsis
Thrombocytopenia - suspected from antibiotics and infection, and a dilutional component from IV fluids
- on admission platelets was 144, then dropped to 66, now gradually improving, increased to 86 as of 06/25/25
- Continue to monitor CBC
- Retic count, LDH and bilirubin are normal. Haptoglobin elevated as would be expected from inflammation.
- Coags showed slightly elevated Prothrombin Time at 14.7, and mildly elevated aPTT at 39.6
- On 06/25/25, I discussed all of the above findings with on-call bolt threader Dr. Gutierrez, and he mentioned that now that it is all resolving as infection/sepsis gets better - it is likely from the sepsis - not much more for
hematology to say as the abnormal findings are resolving with treatment of infection; no hematology consult necessary
- On 06/26/25, I discussed the platelets trend (86 to 83 on 06/26/25) with on-call bolt threader Dr. Gutierrez and he said improvement can take several weeks
Check CBC in 1 week as outpatient.
Hyponatremia -mild. Monitor for now.
Elevated Bilirubin -- suspected from sepsis
-Total bilirubin was 2.8, then improved to 1.1
Normocytic Anemia
- Suspected from hemodilution and infection
Essential hypertension
- Stable. Losartan resumed.
Type 2 Diabetes Mellitus
Hyperglycemia
- Stable. Hold metformin while hospitalized.
- Follow glucose and cover with SSI as needed.
- Updated A1C 6.1%
BPH -with acute urinary retention.
Jenkins catheter removed this morning. Awaiting voiding trial, bladder scan.
Diverticulosis
DVT Prophylaxis: SCDs. Heparin Subq
Code Status: Full Code
Dispo -anticipate discharge today after voiding trial completed. Jenkins catheter now removed. Bladder scan pending.
Outpatient follow-up with PCP, urology, cardiology.
updated at the bedside.
35 minutes spent in discharge process.
Anticipated Discharge: Today
Subjective/Interval History
-
Date of Service: June 28, 2025
Patient seen and examined. No complaints.
Objective Data
-
Vital Signs:
Vital Signs
Temp Pulse Resp BP Pulse Ox
97.7 F 71 18 162/82 97
06/28/25 07:59 06/28/25 08:55 06/28/25 07:59 06/28/25 08:55 06/28/25 07:59
I&O
06/27/25 06/28/25 06/29/25
06:59 06:59 06:59
Intake Total 660 / 660 540 / 540
Output Total 875 / 875 2100 / 2100
Balance -215 / -215 -1560 / -1560
Review of Systems
-
History Source: Patient
All other systems: Reviewed and negative
--- NOTE | 2025-06-28 10:00 | W.DS.TRANS ---
DC Summary - [employer]
-
Discharge Instructions:
Discharge Diagnosis/Procedures Sepsis, pyelonephritis, acute heart failure,
acute kidney injury, urinary retention
Diet Diabetic, Carb Controlled,2 Gram Sodium,Restrict
fluids to 48 oz
Activity As tolerated
Driving Restrictions As prior to admission
Bathing Restrictions None
Blood Work CBC, BMP in 1 week with your primary care doctor
Instructions:
Stand-Alone Forms:
Changes to Home Medications: No
Discharge Medications:
DC Medications w/original date entered in [employer]
cholecalciferol (vitamin D3) 25 mcg (1,000 unit) tablet (Vitamin D3) 25 mcg PO DAILY Supplement 06/22/25
losartan 100 mg tablet 100 mg PO DAILY Blood Clot Prevention/Tx 06/22/25
metformin 500 mg tablet 1,000 mg PO QPM Diabetes 06/22/25
ciprofloxacin HCl 500 mg tablet 500 mg PO BID #35 tabs 06/28/25
tamsulosin 0.4 mg capsule 0.4 mg PO DAILY #30 caps 06/28/25
Home Medication Changes
Pending Results: No
--- NOTE | 2025-06-28 10:20 | W.DS.TRANS ---
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
-
Discharge Instructions:
Discharge Diagnosis/Procedures Sepsis, pyelonephritis, acute heart failure,
acute kidney injury, urinary retention
Diet Diabetic, Carb Controlled,2 Gram Sodium,Restrict
fluids to 48 oz
Activity As tolerated
Driving Restrictions As prior to admission
Bathing Restrictions None
Blood Work CBC, BMP in 1 week with your primary care doctor
Instructions:
Stand-Alone Forms:
Changes to Home Medications: No
Discharge Medications:
DC Medications w/original date entered in [employer]
cholecalciferol (vitamin D3) 25 mcg (1,000 unit) tablet (Vitamin D3) 25 mcg PO DAILY Supplement 06/22/25
losartan 100 mg tablet 100 mg PO DAILY Blood Clot Prevention/Tx 06/22/25
metformin 500 mg tablet 1,000 mg PO QPM Diabetes 06/22/25
ciprofloxacin HCl 500 mg tablet 500 mg PO BID #35 tabs 06/28/25
tadalafil 5 mg tablet 5 mg PO HS #30 tabs 06/28/25
tamsulosin 0.4 mg capsule 0.4 mg PO DAILY #30 caps 06/28/25
Home Medication Changes
Pending Results: No
--- NOTE | 2025-06-28 10:40 | W.PN.CD ---
Today's Communication / Plan
-
Med Rx Losartan
As outpatient will add MRA (recovering from REX) and possibly an SGLT2-I (in now with urosepsis)
Watch for need for PO Lasix
Outpt stress test
Our office will arrange followup with Dr. Britt
Cardiology will sign off
Impression / Plan
-
Acute HFpEF - acute.
- Now compensated, still feels like he can't take deep breath but no THAKUR, PND, orthopnea
- GDMT:
- ARB has been held for REX => will resume
- Can add MRA and SGLT2-I as outpatient
- Received Lasix on 06/24/2025 and on 06/25/2025 => Watch for need for PO Lasix
PVCS; asx
Non-ischemic myocardial injury secondary to acute UTI E. coli bacteremia/sepsis and acute HFpEF. Peak Trop 0.246
Urology
- E. coli bacteremia/urosepsis
- Longstanding elevated PSA (negative prostate biopsy)
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
Subjective: Improved
Echo 06/24/2025
1. Normal biventricular size and systolic function without regional wall motion abnormality.
2. No significant valve disease.
3. No prior study available for comparison.
Physical Exam
Vital Signs/Labs
Vital Signs
Temp Pulse Resp BP Pulse Ox
97.7 F 71 18 162/82 97
06/28/25 07:59 06/28/25 08:55 06/28/25 07:59 06/28/25 08:55 06/28/25 07:59
06/27/25 06/28/25 06/29/25
06:59 06:59 06:59
Actual Weight 86.296 kg 84.453 kg
06/27/25 07:12
06/27/25 07:12
PT 14.7 Sec (11.4-14.6) H 06/24/25 10:26
INR 1.12 06/24/25 10:26
APTT 39.6 Sec (23.4-35.0) H 06/24/25 10:26
Magnesium 1.9 mg/dl (1.6-2.3) 06/24/25 10:26
06/24/25 06/26/25
10: 06:11
[id number]-Tgbrrfdkxie Pept 8510 1600
Physical Exam
Constitutional: No acute distress
EENT: Anicteric
Cardiovascular: Rhythm & rate is regular and Pedal edema present
Respiratory: Respiratory effort normal, Lungs clear to auscul. and Wheeze Absent
GI: Soft and Distention absent
Neuro/Psych: AO x 3
Data Reviewed
-
Date of Service: June 28, 2025
[2025-06-28] MEDS: MERREM IV (11:11)
[2025-06-28] MEDS: STERILE WATER FOR INJECTION IV (11:12)
--- NOTE | 2025-06-28 11:27 | CM ---
CM reviewed chart, patient seen bedside with .
Patient for d/c today, denies needs from CM.
Patient confirms transport home from .
CM will continue to follow for all d/c planning needs.
Plan; home no needs.
--- NOTE | 2025-06-28 11:31 | PTCARENOTE ---
Patient discharged to home. PVR 94 ml. Discharge instructions reviewed with patient and his spouse. IV removed. All belongings accounted for, Patent ambulated with spouse down to main lobby for discharge to home.
== END 2025-06-28 11:34 | disposition home or self-care (01) | DRG 871 ==
LOC: 4 WEST ACU 20:51
PROVIDERS: Hospitalist; Nurse Practitioner Gerontology; Student in an Organized Health Care Education/Training Program; ADMITTING PHYSICIAN Hospitalist; ATTENDING PHYSICIAN Hospitalist; CONSULT PHYSICIAN Internal Medicine Cardiovascular Disease; CONSULT PHYSICIAN Internal Medicine Infectious Disease; CONSULT PHYSICIAN Urology; EMERGENCY PHYSICIAN Student in an Organized Health Care Education/Training Program; FAMILY PHYSICIAN Family Medicine
DX: A41.51 Sepsis due to Escherichia coli [E. coli] (principal); I50.33 Acute on chronic diastolic (congestive) heart failure; J96.01 Acute respiratory failure with hypoxia; J81.0 Acute pulmonary edema; N10 Acute pyelonephritis; N17.9 Acute kidney failure, unspecified; E87.20 Acidosis, unspecified; I5A Non-ischemic myocardial injury (non-traumatic); Z16.24 Resistance to multiple antibiotics; Z16.12 Extended spectrum beta lactamase (ESBL) resistance; E87.1 Hypo-osmolality and hyponatremia; R65.20 Severe sepsis without septic shock; I11.0 Hypertensive heart disease with heart failure; N20.0 Calculus of kidney; N41.9 Inflammatory disease of prostate, unspecified; D69.59 Other secondary thrombocytopenia; R97.20 Elevated prostate specific antigen [PSA]; D64.9 Anemia, unspecified; E11.65 Type 2 diabetes mellitus with hyperglycemia; E80.6 Other disorders of bilirubin metabolism; I49.3 Ventricular premature depolarization; K57.90 Diverticulosis of intestine, part unspecified, without perforation or abscess without bleeding; N40.0 Benign prostatic hyperplasia without lower urinary tract symptoms; Z96.642 Presence of left artificial hip joint; Z87.891 Personal history of nicotine dependence; Z79.84 Long term (current) use of oral hypoglycemic drugs; Z80.1 Family history of malignant neoplasm of trachea, bronchus and lung; Z83.6 Family history of other diseases of the respiratory system; Z86.73 Personal history of transient ischemic attack (TIA), and cerebral infarction without residual deficits
CPT/HCPCS: 71045; 71046; 74019; 74176; 80048; 80053; 81003; 81015; 82040; 82962; 83010; 83036; 83605; 83615; 83735; 83880; 84484; 85025; 85027; 85045; 85610; 85730; 87040; 87077; 87086; 87154; 87186; 87205; 93005; 93306; 99285

== ENCOUNTER → 2025-07-11 07:26 | Outpatient (REF) | payer BC, SELFPAY | LOC: MRI 3T 07:26 | PROVIDERS: ATTENDING PHYSICIAN Specialist; FAMILY PHYSICIAN Family Medicine | DX: R97.20 Elevated prostate specific antigen [PSA] (principal) | CPT/HCPCS: 72197; A9575 ==